=== PATIENT | female | born 1965 | race Two or more races ===

== ENCOUNTER 2017-05-26 12:54 | Inpatient (IN) | payer MEDICAID ==
[~2017-05-26] VITALS: Ht 157.5 cm; Wt 129.5 kg
[2017-05-26 13:46] LABS: Basophils # (auto) 0.2 uL; Eosinophils # (auto) 0 uL; Eosinophils % (auto) 0.1 % (0.0-7.0); Hemoglobin 15.6 g/dL (12.2-16.2); Lymphocytes # (auto) 1.3 uL; Lymphocytes % (auto) 6.2 % (10.0-50.0); Mean Corpuscular Hemoglobin 28.2 pg (28.0-32.0); Mean Corpuscular Hgb Conc. 33.1 g/dL (32.0-36.0); Mean Corpuscular Volume 85.1 fL (80.0-100.0); Monocytes # (auto) 1.2 uL; Monocytes % (auto) 5.8 % (0.0-12.0); Neutrophils # (auto) 18.1 uL; Neutrophils % (auto) 86.9 % (37.0-80.0); Platelet Count (auto) 287 10^3/uL (140-450); Red Blood Cells 5.52 10^6/uL (4.0-5.20); Red Cell Distribution Width 13.5 % (11.8-14.3); White Blood Cell 20.8 10^3/uL (4.4-10.8)
[2017-05-26 14:11] LABS: Albumin 3.1 g/dL (3.4-5.0); BUN/Creatinine Ratio 26.9; Calcium 9.5 mg/dL (8.5-10.1); Potassium 4.1 mmol/L (3.5-5.1)
[2017-05-26 14:14] LABS: Bilirubin, Total 1.6 mg/dL (0.2-1.0); Total Protein 8.3 g/dL (6.4-8.2)
[2017-05-26] MEDS ORDERED: SODIUM CHLORIDE 0.9% 1,000 ML IV ONE ×2 (15:41)
[2017-05-26] MEDS ORDERED: cefTRIAXone 1GM/10ml IVPUSH 10 ML IV ONE (15:45)
[2017-05-26] MEDS ORDERED: InsuLIN REG 1unit/0.01ml Soln (100units/ml) IV ONE (17:30)
[2017-05-26] MEDS ORDERED: CLINDAMYCIN 900MG IV 50 ML IV ONE (17:30)
[2017-05-27] MEDS ORDERED: ACETAMINOPHEN 325 MG TAB PO PRN
[2017-05-27] MEDS ORDERED: HYDROcodone-ACET 5/325MG TAB PO PRN
[2017-05-27] MEDS ORDERED: DEXTROSE (50%) 50ML SYRG IV PRN
[2017-05-27] MEDS ORDERED: SODIUM CHLORIDE 0.9% 1,000 ML IV SCH
[2017-05-27] MEDS ORDERED: TEMAZEPAM 15 MG CAP PO PRN
[2017-05-27] MEDS ORDERED: MORPHINE SULFATE 10 MG/ML INJ 1ML SDV IV PRN ×2
[2017-05-27] MEDS ORDERED: NITROGLYCERIN 0.4 MG SL TAB SL PRN
[2017-05-27] MEDS ORDERED: ONDANSETRON HCL 4 MG/2 ML VIAL IV PRN
[2017-05-27] MEDS ORDERED: SODIUM CHLORIDE 0.9% 500 ML IV ONE
[2017-05-27] MEDS ORDERED: VANCOMYCIN PER PHARMACY 0 MG IV SCH
[2017-05-27] MEDS ORDERED: VANCOMYCIN 1GM/250ML 250 ML IV ONE (00:15)
[2017-05-27] MEDS: ACCU-CHEK COMFORT CURVE STRIP VI SCH ×4 (06:00→17:48)
[2017-05-27] MEDS: InsuLIN REG 1unit/0.01ml Soln (100units/ml) SC SCH ×4 (06:00→17:55)
[2017-05-27 07:18] LABS: Basophils # (auto) 0.1 uL; Basophils % (auto) 0.6 % (0.0-2.0); Eosinophils # (auto) 0.1 uL; Eosinophils % (auto) 0.7 % (0.0-7.0); Hematocrit 43.2 % (36.0-46.0); Hemoglobin 14.1 g/dL (12.2-16.2); Lymphocytes # (auto) 1.7 uL; Lymphocytes % (auto) 11.4 % (10.0-50.0); Mean Corpuscular Hemoglobin 27.8 pg (28.0-32.0); Mean Corpuscular Hgb Conc. 32.7 g/dL (32.0-36.0); Mean Corpuscular Volume 85.1 fL (80.0-100.0); Monocytes # (auto) 1.3 uL; Monocytes % (auto) 8.6 % (0.0-12.0); Neutrophils # (auto) 11.9 uL; Neutrophils % (auto) 78.7 % (37.0-80.0); Platelet Count (auto) 272 10^3/uL (140-450); Red Blood Cells 5.08 10^6/uL (4.0-5.20); Red Cell Distribution Width 13.2 % (11.8-14.3); White Blood Cell 15.1 10^3/uL (4.4-10.8)
[2017-05-27 07:36] LABS: Albumin 2.5 g/dL (3.4-5.0); BUN/Creatinine Ratio 27.3; Bilirubin, Total 1.4 mg/dL (0.2-1.0); Calcium 8.2 mg/dL (8.5-10.1); Potassium 3.8 mmol/L (3.5-5.1)
[2017-05-27] MEDS ORDERED: METF-370 PO (08:59)
[2017-05-27] MEDS ORDERED: LISI40TA PO (08:59)
[2017-05-27] MEDS: cefTRIAXone 1GM/10ml IVPUSH 10 ML IV SCH (12:23)
[2017-05-27] MEDS: FAMOTIDINE 20 MG TAB PO SCH ×2 (12:24→21:16)
[2017-05-27] MEDS: SODIUM CHLORIDE 0.9% 1,000 ML IV SCH (12:24)
[2017-05-27] MEDS: VANCOMYCIN 1GM/250ML 250 ML IV SCH (12:58)
[2017-05-27 13:24] VITALS: BP 122/90
[2017-05-27 17:28] VITALS: BP 136/72
[2017-05-27 21:47] VITALS: BP 145/97
[2017-05-28] MEDS: VANCOMYCIN 1GM/250ML 250 ML IV SCH (00:33)
[2017-05-28] MEDS: SODIUM CHLORIDE 0.9% 1,000 ML IV SCH ×2 (04:40→21:20)
[2017-05-28 05:42] VITALS: BP 148/85
[2017-05-28] MEDS: InsuLIN REG 1unit/0.01ml Soln (100units/ml) SC SCH ×5 (06:00→23:59)
[2017-05-28] MEDS: ACCU-CHEK COMFORT CURVE STRIP VI SCH ×5 (06:10→23:59)
[2017-05-28 06:51] LABS: Basophils # (auto) 0 uL; Basophils % (auto) 0.3 % (0.0-2.0); Eosinophils # (auto) 0.3 uL; Eosinophils % (auto) 1.8 % (0.0-7.0); Hematocrit 41.5 % (36.0-46.0); Hemoglobin 13.6 g/dL (12.2-16.2); Lymphocytes # (auto) 1.7 uL; Mean Corpuscular Hemoglobin 27.9 pg (28.0-32.0); Mean Corpuscular Hgb Conc. 32.8 g/dL (32.0-36.0); Mean Corpuscular Volume 84.9 fL (80.0-100.0); Monocytes % (auto) 7.1 % (0.0-12.0); Neutrophils # (auto) 11.2 uL; Neutrophils % (auto) 78.8 % (37.0-80.0); Nucleated Red Blood Cells % 0.1 %; Platelet Count (auto) 298 10^3/uL (140-450); Red Blood Cells 4.89 10^6/uL (4.0-5.20); Red Cell Distribution Width 13.2 % (11.8-14.3); White Blood Cell 14.2 10^3/uL (4.4-10.8)
[2017-05-28 07:14] LABS: Albumin 2.3 g/dL (3.4-5.0); BUN/Creatinine Ratio 33.3; Calcium 8.8 mg/dL (8.5-10.1); Potassium 3.8 mmol/L (3.5-5.1)
[2017-05-28 07:30] LABS: Bilirubin, Total 0.8 mg/dL (0.2-1.0); Total Protein 6.9 g/dL (6.4-8.2)
[2017-05-28 08:00] VITALS: BP 117/75
[2017-05-28 08:25] VITALS: BP 117/75
[2017-05-28] MEDS: cefTRIAXone 1GM/10ml IVPUSH 10 ML IV SCH (08:52)
[2017-05-28] MEDS: FAMOTIDINE 20 MG TAB PO SCH ×2 (09:23→21:55)
[2017-05-28] MEDS ORDERED: DEXTROSE (50%) 50ML SYRG IV PRN (12:45)
[2017-05-28 13:00] VITALS: BP 141/77
[2017-05-28] MEDS: VANCOMYCIN 1,250 MG in D5W 5% 250 ML IV SCH (13:43)
[2017-05-28 17:21] VITALS: BP 143/95
[2017-05-28] MEDS: INSULIN DETEMIR(LEVEMIR) 1unit/0.01ml Soln (100units/ml) SC SCH (21:56)
[2017-05-28 22:00] VITALS: BP 135/75
[2017-05-29] MEDS: VANCOMYCIN 1,250 MG in D5W 5% 250 ML IV SCH ×2 (02:05→13:26)
[2017-05-29 04:43] VITALS: BP 114/65
[2017-05-29] MEDS: InsuLIN REG 1unit/0.01ml Soln (100units/ml) SC SCH ×3 (06:23→17:33)
[2017-05-29] MEDS: ACCU-CHEK COMFORT CURVE STRIP VI SCH ×3 (06:23→17:22)
[2017-05-29 07:19] LABS: Basophils # (auto) 0 uL; Basophils % (auto) 0.3 % (0.0-2.0); Eosinophils # (auto) 0.4 uL; Eosinophils % (auto) 2.8 % (0.0-7.0); Hematocrit 46.4 % (36.0-46.0); Hemoglobin 15.4 g/dL (12.2-16.2); Lymphocytes # (auto) 2.5 uL; Lymphocytes % (auto) 17.9 % (10.0-50.0); Mean Corpuscular Hemoglobin 27.9 pg (28.0-32.0); Mean Corpuscular Hgb Conc. 33.3 g/dL (32.0-36.0); Mean Corpuscular Volume 83.9 fL (80.0-100.0); Monocytes % (auto) 7.3 % (0.0-12.0); Neutrophils # (auto) 10.1 uL; Neutrophils % (auto) 71.7 % (37.0-80.0); Nucleated Red Blood Cells % 0.2 %; Platelet Count (auto) 265 10^3/uL (140-450); Red Blood Cells 5.52 10^6/uL (4.0-5.20); Red Cell Distribution Width 13.5 % (11.8-14.3)
[2017-05-29 08:00] VITALS: BP 146/90
[2017-05-29 08:56] VITALS: BP 146/90
[2017-05-29] MEDS: cefTRIAXone 1GM/10ml IVPUSH 10 ML IV SCH (09:09)
[2017-05-29] MEDS: FAMOTIDINE 20 MG TAB PO SCH ×2 (09:10→22:30)
[2017-05-29] MEDS: LISINOPRIL 20 MG TAB PO SCH (09:10)
[2017-05-29] MEDS: ENOXAPARIN SOD 40 MG/0.4 ML SYRINGE SC SCH (09:11)
[2017-05-29] MEDS: INSULIN DETEMIR(LEVEMIR) 1unit/0.01ml Soln (100units/ml) SC SCH ×2 (09:12→22:31)
[2017-05-29 13:00] VITALS: BP 129/87
[2017-05-29] MEDS: SODIUM CHLORIDE 0.9% 1,000 ML IV SCH (13:26)
[2017-05-29 22:00] VITALS: BP 159/93
[2017-05-30] VITALS (7 sets, daily range): BP systolic 128–152; BP diastolic 69–96
[2017-05-30] MEDS: InsuLIN REG 1unit/0.01ml Soln (100units/ml) SC SCH ×4 (00:25→17:39)
[2017-05-30] MEDS: ACCU-CHEK COMFORT CURVE STRIP VI SCH ×4 (00:25→17:11)
[2017-05-30] MEDS: VANCOMYCIN 1,250 MG in D5W 5% 250 ML IV SCH ×2 (02:03→15:43)
[2017-05-30] MEDS: SODIUM CHLORIDE 0.9% 1,000 ML IV SCH (07:00)
[2017-05-30 07:26] LABS: Urine Bacteria NONE SEEN /hpf (None Seen); Urine Blood Negative /uL (Negative); Urine Mucus FEW (None Seen); Urine Specific Gravity 1.021 (1.001-1.035); Urine WBC 8 /hpf (0 - 5)
[2017-05-30] MEDS: cefTRIAXone 1GM/10ml IVPUSH 10 ML IV SCH (08:53)
[2017-05-30] MEDS: FAMOTIDINE 20 MG TAB PO SCH ×2 (09:11→22:13)
[2017-05-30] MEDS: LISINOPRIL 20 MG TAB PO SCH (09:11)
[2017-05-30] MEDS: INSULIN DETEMIR(LEVEMIR) 1unit/0.01ml Soln (100units/ml) SC SCH ×2 (09:12→22:13)
[2017-05-30] MEDS: ENOXAPARIN SOD 40 MG/0.4 ML SYRINGE SC SCH (09:12)
[2017-05-30] MEDS: VANCOMYCIN 1GM/250ML 250 ML IV SCH (22:12)
[2017-05-31] MEDS: ACCU-CHEK COMFORT CURVE STRIP VI SCH ×5 (00:07→23:47)
[2017-05-31] MEDS: InsuLIN REG 1unit/0.01ml Soln (100units/ml) SC SCH ×4 (00:18→17:48)
[2017-05-31 05:09] VITALS: BP 134/76
[2017-05-31] MEDS: VANCOMYCIN 1GM/250ML 250 ML IV SCH ×3 (05:59→21:55)
[2017-05-31 08:06] LABS: Basophils # (auto) 0.2 uL; Basophils % (auto) 1.2 % (0.0-2.0); Eosinophils # (auto) 0.4 uL; Eosinophils % (auto) 2.8 % (0.0-7.0); Hematocrit 44.4 % (36.0-46.0); Hemoglobin 14.5 g/dL (12.2-16.2); Lymphocytes # (auto) 2.2 uL; Lymphocytes % (auto) 16.7 % (10.0-50.0); Mean Corpuscular Hemoglobin 27.7 pg (28.0-32.0); Mean Corpuscular Hgb Conc. 32.7 g/dL (32.0-36.0); Mean Corpuscular Volume 84.8 fL (80.0-100.0); Monocytes # (auto) 0.9 uL; Monocytes % (auto) 7.1 % (0.0-12.0); Neutrophils # (auto) 9.7 uL; Neutrophils % (auto) 72.2 % (37.0-80.0); Nucleated Red Blood Cells % 0.1 %; Platelet Count (auto) 370 10^3/uL (140-450); Red Blood Cells 5.24 10^6/uL (4.0-5.20); Red Cell Distribution Width 13.3 % (11.8-14.3); White Blood Cell 13.4 10^3/uL (4.4-10.8)
[2017-05-31 08:15] LABS: INR 1.05 (0.9-1.15); Partial Thromboplastin Time 32.7 sec (22.64-33.71); Prothrombin Time 11.5 sec (9.37-12.3)
[2017-05-31 08:27] LABS: Albumin 2.5 g/dL (3.4-5.0); BUN/Creatinine Ratio 22.2; Bilirubin, Total 0.8 mg/dL (0.2-1.0); Calcium 8.8 mg/dL (8.5-10.1); Total Protein 7.7 g/dL (6.4-8.2)
[2017-05-31 09:31] VITALS: BP 154/86
[2017-05-31] MEDS: cefTRIAXone 1GM/10ml IVPUSH 10 ML IV SCH (10:15)
[2017-05-31] MEDS: FAMOTIDINE 20 MG TAB PO SCH ×2 (10:15→21:55)
[2017-05-31] MEDS: LISINOPRIL 20 MG TAB PO SCH (10:16)
[2017-05-31] MEDS: ENOXAPARIN SOD 40 MG/0.4 ML SYRINGE SC SCH (10:16)
[2017-05-31] MEDS: INSULIN DETEMIR(LEVEMIR) 1unit/0.01ml Soln (100units/ml) SC SCH ×2 (10:16→21:56)
[2017-05-31 12:02] VITALS: BP 163/88
[2017-05-31 17:00] VITALS: BP 91/74
[2017-05-31 21:43] VITALS: BP 125/67
[2017-06-01] MEDS: InsuLIN REG 1unit/0.01ml Soln (100units/ml) SC SCH ×5 (00:04→23:15)
[2017-06-01 05:04] VITALS: BP 121/72
[2017-06-01] MEDS: ACCU-CHEK COMFORT CURVE STRIP VI SCH ×4 (05:48→22:30)
[2017-06-01] MEDS ORDERED: ceFAZolin 1GM VL ONE (06:56)
[2017-06-01] MEDS ORDERED: BUPIVACAINE 0.75% INJ 10ML MPV SDV IJ ONE (06:56)
[2017-06-01] MEDS ORDERED: ceFAZolin 1GM/50ML 50 ML IV ONE (07:08)
[2017-06-01] MEDS ORDERED: fentaNYL CITRATE 100 MCG/2 ML VL ONE (07:39)
[2017-06-01] MEDS ORDERED: MIDAZOLAM HCL 1MG/1ML-2 ML VIAL ONE (07:40)
[2017-06-01] MEDS ORDERED: PROPOFOL 10 MG/ML 20 ML IV ONE (07:41)
[2017-06-01 07:53] LABS: Calcium 9.3 mg/dL (8.5-10.1); Potassium 3.8 mmol/L (3.5-5.1)
[2017-06-01 07:56] LABS: Basophils # (auto) 0.1 uL; Basophils % (auto) 0.7 % (0.0-2.0); Eosinophils # (auto) 0.4 uL; Eosinophils % (auto) 3.2 % (0.0-7.0); Hematocrit 42.9 % (36.0-46.0); Hemoglobin 13.9 g/dL (12.2-16.2); Lymphocytes # (auto) 2.2 uL; Mean Corpuscular Hemoglobin 27.6 pg (28.0-32.0); Mean Corpuscular Hgb Conc. 32.4 g/dL (32.0-36.0); Monocytes # (auto) 0.9 uL; Monocytes % (auto) 6.9 % (0.0-12.0); Neutrophils # (auto) 9.3 uL; Neutrophils % (auto) 72.2 % (37.0-80.0); Nucleated Red Blood Cells % 0.1 %; Platelet Count (auto) 359 10^3/uL (140-450); Red Blood Cells 5.05 10^6/uL (4.0-5.20); Red Cell Distribution Width 13.2 % (11.8-14.3); White Blood Cell 12.8 10^3/uL (4.4-10.8)
[2017-06-01 08:00] VITALS: BP 122/68
[2017-06-01] MEDS ORDERED: HYDROmorphone HCL 2 MG/ML VL IV PRN (08:45)
[2017-06-01] MEDS ORDERED: ONDANSETRON HCL 4 MG/2 ML VIAL IV ONE (08:45)
[2017-06-01] MEDS ORDERED: MORPHINE SULF INJ 2 MG/ML SYRINGE 1ML IV PRN (08:45)
[2017-06-01] MEDS ORDERED: ACCU-CHEK COMFORT CURVE STRIP VI ONE (08:45)
[2017-06-01] MEDS ORDERED: KETOROLAC TROMETH 30 MG/ML 1ML VIAL IV ONE (08:45)
[2017-06-01] MEDS ORDERED: MIDAZOLAM HCL 1MG/1ML-2 ML VIAL IV PRN (08:45)
[2017-06-01] MEDS ORDERED: LABETALOL HCL 5 MG/ML 4ML SYRINGE IV PRN (08:45)
[2017-06-01] MEDS ORDERED: ePHEDrine SULFATE 50 MG/ML AMP IV PRN (08:45)
[2017-06-01] MEDS: cefTRIAXone 1GM/10ml IVPUSH 10 ML IV SCH (09:36)
[2017-06-01] MEDS: LISINOPRIL 20 MG TAB PO SCH (09:53)
[2017-06-01] MEDS: MULTIPLE VITAMINS W/ MINERALS TAB PO SCH (09:54)
[2017-06-01] MEDS: ASCORBIC ACID 500 MG TAB PO SCH (09:54)
[2017-06-01] MEDS: FAMOTIDINE 20 MG TAB PO SCH ×2 (09:54→23:12)
[2017-06-01] MEDS: INSULIN DETEMIR(LEVEMIR) 1unit/0.01ml Soln (100units/ml) SC SCH ×2 (09:57→22:30)
[2017-06-01] MEDS: VANCOMYCIN 1,250 MG in D5W 5% 250 ML IV SCH ×2 (11:05→18:10)
[2017-06-01 13:00] VITALS: BP 124/73
[2017-06-01] MEDS ORDERED: LIDOCAINE 1% HCL (LOCAL ANESTH.) INJ 20ML MDV ID ONE (14:45)
[2017-06-01 17:00] VITALS: BP 147/77
[2017-06-01] MEDS: SODIUM CHLOR 0.9% PF (SALINE LOCK) 10ML VIAL IV SCH (22:00)
[2017-06-01 22:53] VITALS: BP 121/62
[2017-06-02] MEDS: VANCOMYCIN 1,250 MG in D5W 5% 250 ML IV SCH ×2 (02:00→05:30)
[2017-06-02 04:58] VITALS: BP 148/83
[2017-06-02] MEDS: InsuLIN REG 1unit/0.01ml Soln (100units/ml) SC SCH ×2 (06:20→12:10)
[2017-06-02] MEDS: ACCU-CHEK COMFORT CURVE STRIP VI SCH ×2 (06:22→12:10)
[2017-06-02 08:00] VITALS: BP 144/84
[2017-06-02 08:19] LABS: Basophils # (auto) 0 uL; Basophils % (auto) 0.4 % (0.0-2.0); Eosinophils # (auto) 0.3 uL; Eosinophils % (auto) 2.7 % (0.0-7.0); Hematocrit 43.8 % (36.0-46.0); Hemoglobin 14.2 g/dL (12.2-16.2); Lymphocytes # (auto) 1.5 uL; Lymphocytes % (auto) 12.3 % (10.0-50.0); Mean Corpuscular Hemoglobin 27.6 pg (28.0-32.0); Mean Corpuscular Hgb Conc. 32.5 g/dL (32.0-36.0); Mean Corpuscular Volume 84.7 fL (80.0-100.0); Monocytes # (auto) 0.7 uL; Monocytes % (auto) 5.8 % (0.0-12.0); Neutrophils # (auto) 9.6 uL; Neutrophils % (auto) 78.8 % (37.0-80.0); Nucleated Red Blood Cells % 0.1 %; Platelet Count (auto) 363 10^3/uL (140-450); Red Blood Cells 5.17 10^6/uL (4.0-5.20); Red Cell Distribution Width 12.8 % (11.8-14.3); White Blood Cell 12.1 10^3/uL (4.4-10.8)
[2017-06-02 08:36] LABS: BUN/Creatinine Ratio 14.8; Calcium 8.8 mg/dL (8.5-10.1); Potassium 3.9 mmol/L (3.5-5.1)
[2017-06-02] MEDS: cefTRIAXone 1GM/10ml IVPUSH 10 ML IV SCH (10:03)
[2017-06-02] MEDS: LISINOPRIL 20 MG TAB PO SCH (10:04)
[2017-06-02] MEDS: MULTIPLE VITAMINS W/ MINERALS TAB PO SCH (10:05)
[2017-06-02] MEDS: ASCORBIC ACID 500 MG TAB PO SCH (10:05)
[2017-06-02] MEDS: FAMOTIDINE 20 MG TAB PO SCH (10:05)
[2017-06-02] MEDS: SODIUM CHLOR 0.9% PF (SALINE LOCK) 10ML VIAL IV SCH (10:06)
[2017-06-02] MEDS: INSULIN DETEMIR(LEVEMIR) 1unit/0.01ml Soln (100units/ml) SC SCH (10:22)
[2017-06-02] MEDS ORDERED: VANCOMYCIN 1,250 MG in D5W 5% 250 ML IV SCH (14:00)
== END 2017-06-02 14:32 | disposition home or self-care (01) | DRG 710 ==
LOC: ER 12:54 → TELE 12:55 → TELE-CENTR 05-27 07:39 → CENTRAL 05-30 12:43
PROVIDERS: ADMIT Nurse Practitioner; ATTEND Internal Medicine
PROC: 02HV33Z Insertion of Infusion Device into Superior Vena Cava, Percutaneous Approach (ICD-10-PCS; 2017-06-01)
PROC: 0Y6R0Z0 Detachment at Right 2nd Toe, Complete, Open Approach (ICD-10-PCS; principal; 2017-06-01 07:41)
DX: A41.9 Sepsis, unspecified organism (principal); E11.52 Type 2 diabetes mellitus with diabetic peripheral angiopathy with gangrene; E11.69 Type 2 diabetes mellitus with other specified complication; E44.0 Moderate protein-calorie malnutrition; L03.115 Cellulitis of right lower limb; Z68.43 Body mass index [BMI] 50.0-59.9, adult; E66.01 Morbid (severe) obesity due to excess calories; M86.8X7 Other osteomyelitis, ankle and foot; I10 Essential (primary) hypertension; J45.909 Unspecified asthma, uncomplicated; Z82.5 Family history of asthma and other chronic lower respiratory diseases
CPT/HCPCS: 36415; 36569; 71045; 71046; 73630; 73700; 78315; 80048; 80053; 80202; 81001; 82962; 83036; 83605; 85025; 85610; 85730; 87040; 87070; 87075; 87205; 93005; 93926; 96361; 96365; 96366; 96375; J0690; J1815; J2250; J2704; J3490; J7060

== ENCOUNTER 2019-05-20 23:07 | Emergency (ER) | payer MEDICAID ==
[~2019-05-20] VITALS: Ht 157.5 cm; Wt 140.2 kg
[~2019-05-20 23:07] MED LIST: LISI40TA PO; METF-370 PO
[2019-05-20 23:24] VITALS: BP 141/67
== END 2019-05-21 02:11 | disposition home or self-care (01) ==
LOC: ER 23:11
DX: S80.11XA Contusion of right lower leg, initial encounter (principal); L03.115 Cellulitis of right lower limb; E11.9 Type 2 diabetes mellitus without complications; I10 Essential (primary) hypertension; M79.661 Pain in right lower leg; W22.8XXA Striking against or struck by other objects, initial encounter; Y93.89 Activity, other specified; Y92.89 Other specified places as the place of occurrence of the external cause; Y99.8 Other external cause status
CPT/HCPCS: 73610; 73630; 93971

== ENCOUNTER 2022-02-23 10:39 | Inpatient (IN) | payer MEDICAID ==
[~2022-02-23] VITALS: Ht 157.5 cm; Wt 121.8 kg
[~2022-02-23 10:39] MED LIST changes: -LISI40TA PO; +LISI40TA11 PO
[2022-02-23] MEDS ORDERED: SODIUM CHLORIDE 0.9% 500 ML IV ONE (11:15)
[2022-02-23 12:02] LABS: INR 1.01 (0.9-1.15); Partial Thromboplastin Time 34.9 sec (24.6-33.4)
[2022-02-23 12:05] LABS: Basophils # (auto) 0.1 10 ^3/uL (0-0.2); Basophils % (auto) 0.9 % (0.0-2.0); Eosinophils # (auto) 0.2 10 ^3/uL (0-0.8); Eosinophils % (auto) 1.7 % (0.0-7.0); Hematocrit 44.8 % (36.0-46.0); Hemoglobin 14.6 g/dL (12.2-16.2); Lymphocytes # (auto) 1.9 10 ^3/uL (0.4-5.4); Lymphocytes % (auto) 14.4 % (10.0-50.0); Mean Corpuscular Hemoglobin 27.2 pg (28.0-32.0); Mean Corpuscular Hgb Conc. 32.5 g/dL (32.0-36.0); Mean Corpuscular Volume 83.7 fL (80.0-100.0); Monocytes # (auto) 0.9 10 ^3/uL (0-1.3); Monocytes % (auto) 6.4 % (0.0-12.0); Neutrophils # (auto) 10.3 10 ^3/uL (1.6-8.6); Neutrophils % (auto) 76.6 % (37.0-80.0); Nucleated Red Blood Cells % 0.1 %; Red Blood Cells 5.36 10^6/uL (4.0-5.20); Red Cell Distribution Width 13.9 % (11.8-14.3); White Blood Cell 13.4 10^3/uL (4.4-10.8)
[2022-02-23 12:17] LABS: Alanine Aminotransferase 17 U/L (13-56); Alkaline Phosphatase 116 U/L (45-117); Anion Gap 9 (5-15); Aspartate Aminotransferase 13 U/L (15-37); BUN/Creatinine Ratio 21.3; Bilirubin, Total 1.2 mg/dL (0.2-1.0); Blood Urea Nitrogen 16 mg/dL (7-18); Carbon Dioxide 23 mmol/L (21-32); Chloride 106 mmol/L (98-107); GFR African American 102 mL/min; GFR Non-African American 85 mL/min; Glucose 254 mg/dL (74-106); Potassium 4.7 mmol/L (3.5-5.1); Sodium 138 mmol/L (136-145); Total Protein 7.3 g/dL (6.4-8.2)
[2022-02-23] MEDS ORDERED: CLINDAMYCIN 600MG IV 50 ML IV ONE (13:00)
[2022-02-23] MEDS ORDERED: DEXTROSE (50%) 50ML SYRG IV PRN (16:15)
[2022-02-23] MEDS ORDERED: ONDANSETRON HCL 4 MG/2 ML VIAL IV PRN (16:15)
[2022-02-23] MEDS ORDERED: PANTOPRAZOLE 40 MG/10 ML VIAL INJ IV ONE (16:15)
[2022-02-23] MEDS: SODIUM CHLORIDE 0.9% 1,000 ML IV SCH (16:42)
[2022-02-23 16:57] LABS: Cholesterol 105 mg/dL (< 200); HDL Cholesterol 53 mg/dL (40-59); LDL Cholesterol 53 mg/dL (< 100); Triglycerides 88 mg/dL (< 150)
[2022-02-23] MEDS: ACCU-CHEK COMFORT CURVE STRIP VI SCH ×2 (17:16→22:00)
[2022-02-23] MEDS: InsuLIN REG 1unit/0.01ml Soln (100units/ml) SC SCH ×2 (17:19→22:35)
[2022-02-23] MEDS ORDERED: DULO1CAP6 PO (23:14)
[2022-02-23] MEDS ORDERED: ATOR20TA50 PO (23:14)
[2022-02-23] MEDS ORDERED: ERTU5TAB PO (23:14)
[2022-02-23] MEDS: CLINDAMYCIN 600MG IV 50 ML IV SCH (23:21)
[2022-02-23] MEDS: ASCORBIC ACID 500 MG TAB PO SCH (23:22)
[2022-02-24] MEDS: SODIUM CHLORIDE 0.9% 1,000 ML IV SCH ×3 (02:15→22:29)
[2022-02-24 05:00] VITALS: BP 122/55
[2022-02-24] MEDS: ACCU-CHEK COMFORT CURVE STRIP VI SCH ×4 (05:24→22:12)
[2022-02-24] MEDS: CLINDAMYCIN 600MG IV 50 ML IV SCH ×3 (05:25→22:20)
[2022-02-24 06:02] LABS: Urine Bacteria FEW /hpf (None Seen); Urine Blood Negative /uL (Negative); Urine Budding Yeast OCCASIONAL /hpf (None Seen); Urine Specific Gravity 1.025 (1.001-1.035); Urine WBC 14 /hpf (0 - 5)
[2022-02-24 06:23] LABS: Basophils # (auto) 0 10 ^3/uL (0-0.2); Basophils % (auto) 0.4 % (0.0-2.0); Eosinophils # (auto) 0.3 10 ^3/uL (0-0.8); Eosinophils % (auto) 2.7 % (0.0-7.0); Hematocrit 42.4 % (36.0-46.0); Hemoglobin 13.7 g/dL (12.2-16.2); Lymphocytes % (auto) 15.9 % (10.0-50.0); Mean Corpuscular Hemoglobin 27.6 pg (28.0-32.0); Mean Corpuscular Hgb Conc. 32.3 g/dL (32.0-36.0); Mean Corpuscular Volume 85.3 fL (80.0-100.0); Monocytes # (auto) 0.9 10 ^3/uL (0-1.3); Neutrophils # (auto) 9.5 10 ^3/uL (1.6-8.6); Red Blood Cells 4.97 10^6/uL (4.0-5.20); Red Cell Distribution Width 14.1 % (11.8-14.3); White Blood Cell 12.8 10^3/uL (4.4-10.8)
[2022-02-24] MEDS: InsuLIN REG 1unit/0.01ml Soln (100units/ml) SC SCH ×4 (06:24→22:20)
[2022-02-24 06:42] LABS: Albumin 2.7 g/dL (3.4-5.0); Calcium 8.5 mg/dL (8.5-10.1); Potassium 4.8 mmol/L (3.5-5.1)
[2022-02-24 06:45] LABS: BUN/Creatinine Ratio 20.9; Bilirubin, Total 1.2 mg/dL (0.2-1.0); Total Protein 6.6 g/dL (6.4-8.2)
[2022-02-24 08:17] VITALS: BP 122/74
[2022-02-24] MEDS ORDERED: PANTOPRAZOLE 40 MG/10 ML VIAL INJ IV SCH (10:00)
[2022-02-24] MEDS: MULTIPLE VITAMIN TAB PO SCH (11:22)
[2022-02-24] MEDS: ZINC SULFATE 220mg CAP or TAB PO SCH (11:23)
[2022-02-24] MEDS: ASCORBIC ACID 500 MG TAB PO SCH ×2 (11:23→22:20)
[2022-02-24] MEDS: LISINOPRIL 20 MG TAB PO SCH (11:23)
[2022-02-24] MEDS: ENOXAPARIN SOD 40 MG/0.4 ML SYRINGE SC SCH (11:24)
[2022-02-24 13:50] VITALS: BP 120/77
[2022-02-24 22:00] VITALS: BP 104/62
[2022-02-25 05:00] VITALS: BP 101/51
[2022-02-25] MEDS: ACCU-CHEK COMFORT CURVE STRIP VI SCH ×4 (06:22→22:16)
[2022-02-25] MEDS: InsuLIN REG 1unit/0.01ml Soln (100units/ml) SC SCH ×4 (06:28→22:19)
[2022-02-25] MEDS: CLINDAMYCIN 600MG IV 50 ML IV SCH ×3 (06:32→22:20)
[2022-02-25 09:00] VITALS: BP 111/70
[2022-02-25] MEDS: ENOXAPARIN SOD 40 MG/0.4 ML SYRINGE SC SCH (10:39)
[2022-02-25] MEDS: ASCORBIC ACID 500 MG TAB PO SCH ×2 (10:39→22:20)
[2022-02-25] MEDS: ZINC SULFATE 220mg CAP or TAB PO SCH (10:39)
[2022-02-25] MEDS: MULTIPLE VITAMIN TAB PO SCH (10:40)
[2022-02-25] MEDS: LISINOPRIL 20 MG TAB PO SCH (10:40)
[2022-02-25] MEDS: SODIUM CHLORIDE 0.9% 1,000 ML IV SCH ×2 (10:41→18:15)
[2022-02-25 12:49] VITALS: BP 109/67
[2022-02-25 17:00] VITALS: BP 109/49
[2022-02-25 22:00] VITALS: BP 98/58
[2022-02-26] MEDS: SODIUM CHLORIDE 0.9% 1,000 ML IV SCH ×2 (01:11→09:44)
[2022-02-26 05:00] VITALS: BP 103/67
[2022-02-26] MEDS: ACCU-CHEK COMFORT CURVE STRIP VI SCH ×2 (06:21→12:00)
[2022-02-26] MEDS: InsuLIN REG 1unit/0.01ml Soln (100units/ml) SC SCH ×2 (06:23→13:29)
[2022-02-26] MEDS: CLINDAMYCIN 600MG IV 50 ML IV SCH ×2 (06:24→13:42)
[2022-02-26 08:54] VITALS: BP 107/58
[2022-02-26] MEDS: MULTIPLE VITAMIN TAB PO SCH (09:36)
[2022-02-26] MEDS: ENOXAPARIN SOD 40 MG/0.4 ML SYRINGE SC SCH (09:37)
[2022-02-26] MEDS: ZINC SULFATE 220mg CAP or TAB PO SCH (09:37)
[2022-02-26] MEDS: ASCORBIC ACID 500 MG TAB PO SCH (09:37)
[2022-02-26] MEDS: LISINOPRIL 20 MG TAB PO SCH (09:38)
[2022-02-26] MEDS ORDERED: CLIN300C8 PO (10:39)
[2022-02-26 11:46] VITALS: BP 107/74
[2022-02-26 13:00] VITALS: BP 126/65
== END 2022-02-26 16:35 | disposition home health service (06) | DRG 720 ==
LOC: ER 10:39 → OVERFLOW 16:08 → WEST WING 22:45
PROVIDERS: ADMIT Nurse Practitioner Family; ATTEND Internal Medicine
DX: A41.9 Sepsis, unspecified organism (principal); E46 Unspecified protein-calorie malnutrition; E11.69 Type 2 diabetes mellitus with other specified complication; L03.115 Cellulitis of right lower limb; M86.8X7 Other osteomyelitis, ankle and foot; E78.5 Hyperlipidemia, unspecified; E11.65 Type 2 diabetes mellitus with hyperglycemia; M79.89 Other specified soft tissue disorders; Z20.822 Contact with and (suspected) exposure to COVID-19; I10 Essential (primary) hypertension; E66.01 Morbid (severe) obesity due to excess calories; Z81.8 Family history of other mental and behavioral disorders; Z82.5 Family history of asthma and other chronic lower respiratory diseases; Z89.421 Acquired absence of other right toe(s)
CPT/HCPCS: 36415; 73700; 80053; 80061; 81001; 82962; 83036; 84443; 85025; 85610; 85652; 85730; 87040; 87077; 87186; 87205; 87426; 93005; 93971; 96365; 96375; C9113; G0378; J1815; J3490

== ENCOUNTER 2022-04-10 15:24 | Inpatient (IN) | payer MEDICAID ==
[~2022-04-10] VITALS: Ht 157.5 cm; Wt 123.6 kg
[~2022-04-10 15:24] MED LIST changes: +ATOR20TA50 PO; +CLIN300C8 PO; +DULO1CAP6 PO; +ERTU5TAB PO
[2022-04-11 02:05] LABS: Basophils # (auto) 0.1 10 ^3/uL (0-0.2); Basophils % (auto) 0.4 % (0.0-2.0); Eosinophils # (auto) 0.2 10 ^3/uL (0-0.8); Eosinophils % (auto) 1.4 % (0.0-7.0); Hematocrit 46.4 % (36.0-46.0); Hemoglobin 15.1 g/dL (12.2-16.2); Lymphocytes # (auto) 2.3 10 ^3/uL (0.4-5.4); Mean Corpuscular Hemoglobin 27.3 pg (28.0-32.0); Mean Corpuscular Hgb Conc. 32.5 g/dL (32.0-36.0); Mean Corpuscular Volume 84.2 fL (80.0-100.0); Monocytes # (auto) 0.9 10 ^3/uL (0-1.3); Monocytes % (auto) 6.8 % (0.0-12.0); Neutrophils % (auto) 74.4 % (37.0-80.0); Nucleated Red Blood Cells % 0.1 %; Red Blood Cells 5.51 10^6/uL (4.0-5.20); White Blood Cell 13.5 10^3/uL (4.4-10.8)
[2022-04-11 02:26] LABS: Albumin 3.3 g/dL (3.4-5.0); Calcium 9.4 mg/dL (8.5-10.1); Potassium 4.4 mmol/L (3.5-5.1)
[2022-04-11 02:28] LABS: BUN/Creatinine Ratio 23.5
[2022-04-11 02:41] LABS: Bilirubin, Total 1.2 mg/dL (0.2-1.0); Total Protein 7.1 g/dL (6.4-8.2)
[2022-04-11] MEDS ORDERED: HYDROcodone-ACET 5/325MG TAB PO PRN (04:15)
[2022-04-11] MEDS ORDERED: cefTRIAXone 1GM/50ML D5W 50 ML IV ONE (04:15)
[2022-04-11] MEDS ORDERED: NITROGLYCERIN 0.4 MG SL TAB SL PRN (04:15)
[2022-04-11] MEDS ORDERED: ONDANSETRON HCL 4 MG/2 ML VIAL IV PRN (04:15)
[2022-04-11] MEDS ORDERED: DOCUSATE SOD 100 MG CAP PO PRN (04:15)
[2022-04-11] MEDS ORDERED: DEXTROSE (50%) 50ML SYRG IV PRN (04:15)
[2022-04-11] MEDS ORDERED: MORPHINE SULFATE INJ 2 MG/ml SYRG IV PRN ×2 (04:15)
[2022-04-11] MEDS ORDERED: ACETAMINOPHEN 325 MG TAB PO PRN (04:15)
[2022-04-11] MEDS ORDERED: VANCOMYCIN PER PHARMACY 0 MG IV SCH (04:15)
[2022-04-11] MEDS ORDERED: VANCOMYCIN 1GM/250ML 250 ML IV ONE (04:30)
[2022-04-11 05:22] LABS: Basophils # (auto) 0.1 10 ^3/uL (0-0.2); Eosinophils # (auto) 0.2 10 ^3/uL (0-0.8); Eosinophils % (auto) 1.6 % (0.0-7.0); Hematocrit 47.6 % (36.0-46.0); Hemoglobin 15.4 g/dL (12.2-16.2); Lymphocytes # (auto) 2.2 10 ^3/uL (0.4-5.4); Lymphocytes % (auto) 16.4 % (10.0-50.0); Mean Corpuscular Hemoglobin 27.5 pg (28.0-32.0); Mean Corpuscular Hgb Conc. 32.4 g/dL (32.0-36.0); Mean Corpuscular Volume 84.8 fL (80.0-100.0); Monocytes # (auto) 0.9 10 ^3/uL (0-1.3); Monocytes % (auto) 6.4 % (0.0-12.0); Neutrophils % (auto) 74.6 % (37.0-80.0); Nucleated Red Blood Cells % 0.1 %; Red Blood Cells 5.62 10^6/uL (4.0-5.20); White Blood Cell 13.4 10^3/uL (4.4-10.8)
[2022-04-11 05:43] LABS: Albumin 3.4 g/dL (3.4-5.0); BUN/Creatinine Ratio 26.7; Calcium 9.4 mg/dL (8.5-10.1); Potassium 4.4 mmol/L (3.5-5.1)
[2022-04-11 05:46] LABS: Bilirubin, Total 1.4 mg/dL (0.2-1.0); Total Protein 7.2 g/dL (6.4-8.2)
[2022-04-11] MEDS: InsuLIN REG 1unit/0.01ml Soln (100units/ml) SC SCH ×3 (09:15→18:00)
[2022-04-11] MEDS: SODIUM CHLOR 0.9% PF (SALINE LOCK) 10ML VIAL/SYR IV SCH ×3 (09:15→22:12)
[2022-04-11] MEDS: ACCU-CHEK COMFORT CURVE STRIP VI SCH ×3 (09:17→18:12)
[2022-04-11] MEDS: cefTRIAXone 1GM/50ML D5W 50 ML IV SCH (17:34)
[2022-04-11] MEDS: ENOXAPARIN SOD 40 MG/0.4 ML SYRINGE SC SCH (17:34)
[2022-04-11] MEDS: VANCOMYCIN 1GM/250ML 250 ML IV SCH (18:00)
[2022-04-12] MEDS: ACCU-CHEK COMFORT CURVE STRIP VI SCH ×5 (00:24→23:48)
[2022-04-12] MEDS: InsuLIN REG 1unit/0.01ml Soln (100units/ml) SC SCH ×5 (00:47→23:48)
[2022-04-12] MEDS: VANCOMYCIN 1GM/250ML 250 ML IV SCH ×4 (02:38→23:45)
[2022-04-12 04:17] LABS: Basophils # (auto) 0.1 10 ^3/uL (0-0.2); Basophils % (auto) 0.8 % (0.0-2.0); Eosinophils # (auto) 0.4 10 ^3/uL (0-0.8); Eosinophils % (auto) 3.4 % (0.0-7.0); Hematocrit 45.3 % (36.0-46.0); Hemoglobin 14.9 g/dL (12.2-16.2); Lymphocytes # (auto) 2.3 10 ^3/uL (0.4-5.4); Lymphocytes % (auto) 18.1 % (10.0-50.0); Mean Corpuscular Hemoglobin 27.7 pg (28.0-32.0); Monocytes % (auto) 7.6 % (0.0-12.0); Neutrophils # (auto) 8.9 10 ^3/uL (1.6-8.6); Neutrophils % (auto) 70.1 % (37.0-80.0); Nucleated Red Blood Cells % 0.1 %; Red Cell Distribution Width 14.9 % (11.8-14.3); White Blood Cell 12.8 10^3/uL (4.4-10.8)
[2022-04-12 04:37] LABS: Albumin 3.2 g/dL (3.4-5.0); Calcium 9.3 mg/dL (8.5-10.1); Potassium 4.1 mmol/L (3.5-5.1)
[2022-04-12 04:42] LABS: BUN/Creatinine Ratio 35.8; Bilirubin, Total 1.4 mg/dL (0.2-1.0); Total Protein 6.7 g/dL (6.4-8.2)
[2022-04-12] MEDS: SODIUM CHLOR 0.9% PF (SALINE LOCK) 10ML VIAL/SYR IV SCH ×3 (06:22→21:06)
[2022-04-12] MEDS: ENOXAPARIN SOD 40 MG/0.4 ML SYRINGE SC SCH (10:44)
[2022-04-12] MEDS: cefTRIAXone 1GM/50ML D5W 50 ML IV SCH (10:44)
[2022-04-12 12:00] VITALS: BP 115/64
[2022-04-12 12:31] LABS: Hepatitis B Surface Antibody Negative (Negative)
[2022-04-12 14:19] LABS: Hepatitis C Antibody Negative (Negative)
[2022-04-12 16:00] VITALS: BP 117/66
[2022-04-12 22:00] VITALS: BP 134/74
[2022-04-13 05:00] VITALS: BP 130/57
[2022-04-13] MEDS: ACCU-CHEK COMFORT CURVE STRIP VI SCH ×2 (05:13→12:23)
[2022-04-13] MEDS: SODIUM CHLOR 0.9% PF (SALINE LOCK) 10ML VIAL/SYR IV SCH ×2 (05:13→14:00)
[2022-04-13] MEDS: InsuLIN REG 1unit/0.01ml Soln (100units/ml) SC SCH ×2 (05:18→12:23)
[2022-04-13] MEDS: VANCOMYCIN 1GM/250ML 250 ML IV SCH ×2 (05:39→12:23)
[2022-04-13 07:06] LABS: Albumin 3.1 g/dL (3.4-5.0); BUN/Creatinine Ratio 33.3; Calcium 8.8 mg/dL (8.5-10.1); Potassium 4.2 mmol/L (3.5-5.1)
[2022-04-13 08:00] VITALS: BP 104/69
[2022-04-13] MEDS: cefTRIAXone 1GM/50ML D5W 50 ML IV SCH (09:43)
[2022-04-13] MEDS: ENOXAPARIN SOD 40 MG/0.4 ML SYRINGE SC SCH (09:43)
[2022-04-13] MEDS ORDERED: INFLUENZA QUAD 2022-2023 0.5 ML SYRG IM ONE (11:30)
[2022-04-13 12:00] VITALS: BP 130/70
[2022-04-13 14:51] LABS: INR 1.04 (0.9-1.15)
[2022-04-13 16:00] VITALS: BP 150/66
[2022-04-13] MEDS ORDERED: LIDOCAINE 1% (LOCAL ANESTH.) PF 5ml SDV ID ONE (16:30)
[2022-04-13] MEDS ORDERED: SODIUM CHLOR 0.9% PF (SALINE LOCK) 10ML VIAL/SYR IV SCH (22:00)
[2022-04-14] MEDS ORDERED: VANCOMYCIN 1GM/250ML 250 ML IV SCH (02:00)
== END 2022-04-13 18:20 | disposition home or self-care (01) | DRG 206 ==
LOC: ER 15:27 → OVERFLOW 04-11 04:13 → CENTRAL 04-12 08:38
PROVIDERS: ADMIT Nurse Practitioner Family; ATTEND Student in an Organized Health Care Education/Training Program
PROC: 02HV33Z Insertion of Infusion Device into Superior Vena Cava, Percutaneous Approach (ICD-10-PCS; principal; 2022-04-13)
PROC: B548ZZA Ultrasonography of Superior Vena Cava, Guidance (ICD-10-PCS; 2022-04-13)
DX: T82.514A Breakdown (mechanical) of infusion catheter, initial encounter (principal); E11.69 Type 2 diabetes mellitus with other specified complication; L03.115 Cellulitis of right lower limb; Z20.822 Contact with and (suspected) exposure to COVID-19; Y71.2 Prosthetic and other implants, materials and accessory cardiovascular devices associated with adverse incidents; E86.0 Dehydration; E11.65 Type 2 diabetes mellitus with hyperglycemia; I10 Essential (primary) hypertension; M86.8X7 Other osteomyelitis, ankle and foot; E78.5 Hyperlipidemia, unspecified
CPT/HCPCS: 36415; 36569; 71045; 80053; 80069; 80202; 82962; 84484; 85025; 85610; 85730; 86706; 86803; 87426; 96365; 96367; 96372; G0378; J0696; J1815

== ENCOUNTER 2022-05-14 16:00 | Emergency (ER) | payer MEDICAID ==
[~2022-05-14] VITALS: Ht 157.5 cm; Wt 121.8 kg
[2022-05-14 16:12] VITALS: BP 155/77
[2022-05-14 17:17] LABS: INR 0.99 (0.9-1.15); Partial Thromboplastin Time 31.6 sec (24.6-33.4)
[2022-05-14 18:41] LABS: Basophils # (auto) 0.1 10 ^3/uL (0-0.2); Basophils % (auto) 0.8 % (0.0-2.0); Eosinophils # (auto) 0.5 10 ^3/uL (0-0.8); Hematocrit 45.3 % (36.0-46.0); Lymphocytes # (auto) 2.1 10 ^3/uL (0.4-5.4); Mean Corpuscular Hemoglobin 28.2 pg (28.0-32.0); Mean Corpuscular Hgb Conc. 33.1 g/dL (32.0-36.0); Mean Corpuscular Volume 85.2 fL (80.0-100.0); Monocytes # (auto) 0.7 10 ^3/uL (0-1.3); Monocytes % (auto) 5.7 % (0.0-12.0); Neutrophils # (auto) 8.2 10 ^3/uL (1.6-8.6); Neutrophils % (auto) 71.5 % (37.0-80.0); Red Blood Cells 5.32 10^6/uL (4.0-5.20); Red Cell Distribution Width 14.5 % (11.8-14.3); White Blood Cell 11.5 10^3/uL (4.4-10.8)
[2022-05-14 18:46] LABS: Albumin 3.3 g/dL (3.4-5.0); Calcium 9.5 mg/dL (8.5-10.1); Potassium 4.3 mmol/L (3.5-5.1)
[2022-05-14 18:49] LABS: Bilirubin, Total 0.6 mg/dL (0.2-1.0); Total Protein 7.5 g/dL (6.4-8.2)
[2022-05-14] MEDS ORDERED: LIDOCAINE 1% (LOCAL ANESTH.) PF 5ml SDV ID ONE (19:45)
[2022-05-14] MEDS ORDERED: SODIUM CHLOR 0.9% PF (SALINE LOCK) 10ML VIAL/SYR IV SCH (22:00)
== END 2022-05-14 20:25 | disposition left against medical advice (07) ==
LOC: ER 16:00
DX: Z45.2 Encounter for adjustment and management of vascular access device (principal); I10 Essential (primary) hypertension; E11.9 Type 2 diabetes mellitus without complications; E78.5 Hyperlipidemia, unspecified; Z79.2 Long term (current) use of antibiotics; Z79.899 Other long term (current) drug therapy
CPT/HCPCS: 36415; 36569; 71045; 80053; 85025; 85610; 85730; 99284; C1751; J7050

== ENCOUNTER 2022-05-15 15:07 | Emergency (ER) | payer MEDICAID ==
[~2022-05-15] VITALS: Ht 157.5 cm; Wt 121.5 kg
[2022-05-15] MEDS ORDERED: cefTRIAXone 1GM/50ML D5W 50 ML IV ONE (16:00)
[2022-05-15] MEDS ORDERED: VANCOMYCIN PER PHARMACY 0 MG IV ONE (16:30)
[2022-05-15] MEDS ORDERED: VANCOMYCIN 1GM/250ML 250 ML IV ONE (17:00)
[2022-05-15 18:04] LABS: Albumin 3.5 g/dL (3.4-5.0); BUN/Creatinine Ratio 32.3; Calcium 9.4 mg/dL (8.5-10.1); Potassium 4.6 mmol/L (3.5-5.1)
[2022-05-15 18:16] LABS: Bilirubin, Total 0.8 mg/dL (0.2-1.0); Total Protein 7.3 g/dL (6.4-8.2)
[2022-05-15 19:08] LABS: Basophils # (auto) 0.1 10 ^3/uL (0-0.2); Basophils % (auto) 0.7 % (0.0-2.0); Eosinophils # (auto) 0.4 10 ^3/uL (0-0.8); Eosinophils % (auto) 2.7 % (0.0-7.0); Hemoglobin 16.8 g/dL (12.2-16.2); Lymphocytes # (auto) 2.4 10 ^3/uL (0.4-5.4); Lymphocytes % (auto) 16.9 % (10.0-50.0); Mean Corpuscular Hemoglobin 29.1 pg (28.0-32.0); Mean Corpuscular Hgb Conc. 34.2 g/dL (32.0-36.0); Monocytes # (auto) 0.7 10 ^3/uL (0-1.3); Monocytes % (auto) 4.7 % (0.0-12.0); Neutrophils # (auto) 10.7 10 ^3/uL (1.6-8.6); Nucleated Red Blood Cells % 0.4 %; Red Blood Cells 5.76 10^6/uL (4.0-5.20); Red Cell Distribution Width 14.4 % (11.8-14.3); White Blood Cell 14.3 10^3/uL (4.4-10.8)
[2022-05-16 00:39] VITALS: BP 110/64
== END 2022-05-16 00:45 | disposition home or self-care (01) ==
LOC: ER 15:07
DX: M86.8X7 Other osteomyelitis, ankle and foot (principal); Z79.2 Long term (current) use of antibiotics
CPT/HCPCS: 36415; 80053; 80202; 85025; 96365; 96366; 96367; 99284; J0696; J3370

== ENCOUNTER 2024-05-30 09:57 | Inpatient (IN) | payer MEDICAID ==
[~2024-05-30] VITALS: Ht 157.5 cm; Wt 115.2 kg
[~2024-05-30 09:57] MED LIST changes: +CLIN1CAP70 PO; -CLIN300C8 PO; -LISI40TA11 PO; +LISI40TA16 PO
--- NOTE | 2024-05-30 10:15 | ED.PDOC ---
Musculoskeletal HPI Comments 58 year old female presents to the ED with chief complaint of toe infection. Patient reports that she had noticed this morning bleeding coming from an open wound on her left 2nd toe with associated redness and swelling. Patient relays that she had a similar infection occur to her right 2nd toe in which it needed to be amputated. Patient states the infection happened overnight as yesterday her left 2nd toe appeared normal. Patient denies any numbness, weakness, discharge, or foot pain. Chief Complaint: Lower Extremity Time Seen by MD: 10:13 Primary Care Provider: delmar Bolden Notes: Nurses Notes, Medications, Allergies Allergies: Coded Allergies: NO KNOWN ALLERGIES (Unverified , 08/06/13) Home Meds Active Scripts Clindamycin Hcl (Clindamycin Hcl) 300 Mg Cap, 1 CAP PO TID, #30 CAP Prov:RENAN SKINNER MD 02/26/22 Reported Medications Ertugliflozin l-Pyroglutamic A (Steglatro) 5 Mg Tab, 1 TAB PO DAILY 02/23/22 Atorvastatin Calcium (ATORVASTATIN CALCIUM) 20 Mg Tab, 1 TAB PO DAILY 02/23/22 Duloxetine HCl (Duloxetine HCl) 60 Mg Cap, 1 CAP PO DAILY 02/23/22 Lisinopril (Lisinopril) 40 Mg Tab, 40 MG PO DAILY for 30 Days, MG 05/27/17 Metformin Hydrochloride (Metformin Hcl) 500 Mg Tab, 1 TAB PO DAILY, #60 TAB 3 Refills 05/27/17 Information Source: Patient Mode of Arrival: Wheelchair Location: Left Extremity Location: Toe 2 Timing: Hours Prehospital treatment: None Severity: Moderate Able to Move Extremity: Yes Bear Weight: Fully Pain: Moderate Mechanism: Spontaneous Circumstances: Preceding Wound Onset of Symptoms: Spontaneous Symptoms: Swelling, Pain, Erythema, Warmth DVT Risk Factors: NONE Last Tetanus: Unknown Associated signs and symptoms: Swelling Past Medical History PAST MEDICAL HISTORY: DM, High Lipids, HTN Surgical History (Other): Rt 2nd toe amputation. 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 History Family History Family History: Reviewed,noncontributory to illness Family History (Other): Mom had dementia Social History Smoker: Non-Smoker Alcohol: Denies ETOH Use Drugs: Denies Drug Use Lives In: Home Constitutional: denies: chills, diaphoresis, fatigue, fever, malaise, sweats, weakness, others EENTM: denies: blurred vision, double vision, ear bleeding, ear discharge, ear drainage, ear pain, ear ringing, eye pain, eye redness, hearing loss, mouth pain, mouth swelling, nasal discharge, nose bleeding, nose congestion, nose pain, photophobia, tearing, throat pain, throat swelling, voice changes, others Respiratory: denies: cough, hemoptysis, orthopnea, SOB at rest, shortness of breath, SOB with excertion, stridor, wheezing, others Cardiovascular: denies: chest pain, dizzy spells, diaphoresis, Dyspnea on exertion, edema, irregular heart beat, left arm pain, lightheadedness, palpita tions, PND, syncope, others Gastrointestinal: denies: abdomen distended, abdominal pain, blood streaked heather wels, constipated, diarrhea, dysphagia, difficulty swallowing, hematemesis, melena, nausea, poor appetite, poor fluid intake, rectal bleeding, rectal pain, vomiting, others Genitourinary: denies: abnormal vagina bleeding, burning, dyspareunia, dysuria, flank pain, frequency, hematuria, incontinence, pain, , vagina discharge, urgency, others Neurological: denies: dizziness, fainting, headache, left sided numbness, left sided weakness, numbness, paresthesia, pre-existing deficit, right sided numbness, right sided weakness, seizure, speech problems, tingling, tremors, weakness, others Musculoskeletal: denies: back pain, gout, joint pain, joint swelling, muscle pain, muscle stiffness, neck pain, others Integumetry: reports: wounds (Left 2nd toe wound with swelling and redness); denies: bruises, change in color, change in hair/nails, dryness, laceration, lesions, lumps, rash, others Allergic/Immunocompromised: denies: Difficulty Healing, Frequent Infections, Hives, Itching, others Hematologic/Lymphatic: denies: anemia, blood clots, easy bleeding, easy bruising, swollen glands, others Endocrine: denies: excessive hunger, excessive sweating, excessive thirst, excessive urination, flushing, intolerance to cold, intolerance to heat, unexplained weight gain, unexplained weight loss, others Psychiatric: denies: anxiety, bipolar disorder, depression, hopeless, panic disorder, schizophrenia, sleepless, suicidal, others All Other Systems: Reviewed and Negative Physical Exam General Appearance: Moderate Distress, Normal HEENT: Normal ENT Inspection, PERRL/EOMI Neck: Full Range of Motion, Non-Tender, Normal, Normal Inspection Respiratory: Chest Non-Tender, Lungs Clear, No Accessory Muscle Use, No Respiratory Distress, Normal Breath Sounds Cardiovascular: No Edema, No JVD, No Murmur, No Gallop, Normal Peripheral Pulses, Regular Rate/Rhythm Breast Exam: Deferred Gastrointestinal: No Organomegaly, Non Tender, No Pulsatile Mass, Normal Bowel Sounds, Soft Genitalia: Deferred Pelvic: Deferred Rectal: Deferred Extremities: No calf tenderness, Normal capillary refill, Normal range of motion, Non-tender, No pedal edema Musculoskeletal : Apperance: Normal Neurologic: Alert, tax accounting manager II-XII nml as Tested, No Motor Deficits, Normal Affect, Normal Mood, No Sensory Deficits Cerebellar Function: NOT DONE Reflexes: NOT DONE Skin: Dry, Warm, Wounds (Left 2nd toe redness open) Peripheral Pulses: 3+ Radial (R), 3+ Radial (L) Lymphatic: No Adenopathy Was a procedure done? Was a procedure done?: No Differential Diagnosis EXT Differential Diagnosis: Cellulitis X-Ray, Labs, Meds, VS Patient alert. Complaining of left foot redness. History of diabetes. Vitals stable. On examination warmth to touch along with redness of the 2nd toe increasing in diameter. Establish intravenous access. Was given Zosyn. Reviewed her previous visit. Explained to the patient. Continue cardiac monitoring. Time of 1ST Reevaluation: 11:13 Reevaluation 1ST: Unchanged Patient Education/Counseling: Diagnosis, Treatment Family Education/Counseling: No Family Present Additional Information I reviewed the following notes from patient's past medical encounters: 05/15/22 for osteomyelitis of right foot The following tests were ordered, and results were reviewed by me: Blood culture, lactic acid, CBC, BMP, UA Additional Information was gathered from interviewing the following independent historians: None I reviewed and agreed with the following test results read by other providers: None I discussed treatment and results with medical personnel. Departure 1 Departure Time of Disposition: 10:19 Impression: Primary Impression: Cellulitis of foot Disposition: ADMITTED INPATIENT Admit to: Med Surg Condition: Guarded Critical Care Note Critical Care Time?: No Stability Stability form required: No Heart Score Heart Score: Heart Score Response (Comments) Value History N/A 0 EKG N/A 0 Age N/A 0 Risk Factors N/A 0 Troponin N/A 0 Total 0 I personally scribed for TREMAINE VARGAS MD ([email or web address]) on 05/30/24 at 10:15. Electronically submitted by Steve Mayo ([email or web address]). I personally scribed for TREMAINE VARGAS MD ([email or web address]) on 05/30/24 at 10:16. Electronically submitted by Steve Mayo ([email or web address]). TREMAINE VARGAS MD May 30, 2024 10:15
[2024-05-30 10:56] LABS: Basophils # (auto) 0 10 ^3/uL (0-0.2); Basophils % (auto) 0.3 % (0.0-2.0); Eosinophils # (auto) 0.2 10 ^3/uL (0-0.8); Eosinophils % (auto) 1.7 % (0.0-7.0); Hematocrit 47.6 % (36.0-46.0); Hemoglobin 15.9 g/dL (12.2-16.2); Lymphocytes # (auto) 1.9 10 ^3/uL (0.4-5.4); Mean Corpuscular Hemoglobin 29.5 pg (28.0-32.0); Mean Corpuscular Hgb Conc. 33.4 g/dL (32.0-36.0); Mean Corpuscular Volume 88.1 fL (80.0-100.0); Monocytes # (auto) 0.9 10 ^3/uL (0-1.3); Monocytes % (auto) 7.4 % (0.0-12.0); Neutrophils # (auto) 9.1 10 ^3/uL (1.6-8.6); Neutrophils % (auto) 74.6 % (37.0-80.0); Platelet Count (auto) 256 10^3/uL (140-450); Red Blood Cells 5.41 10^6/uL (4.0-5.20); Red Cell Distribution Width 13.6 % (11.8-14.3); White Blood Cell 12.2 10^3/uL (4.4-10.8)
[2024-05-30 10:59] LABS: Sodium 139 mmol/L (136-145)
[2024-05-30 11:00] LABS: Anion Gap 8 (5-15); Carbon Dioxide 24 mmol/L (20-31)
[2024-05-30 11:01] LABS: Calcium 10.1 mg/dL (8.7-10.4)
[2024-05-30 11:05] LABS: BUN/Creatinine Ratio 20.3 (10.0-20.0); Blood Urea Nitrogen 15 mg/dL (9-23)
[2024-05-30] MEDS: PIPERACILLIN-TAZOB 3.375GM 100 ML IV ONE (11:06)
[2024-05-30 11:20] LABS: Chloride 107 mmol/L (98-107); Glucose 227 mg/dL (74-106)
--- NOTE | 2024-05-30 12:09 | DVH ---
CLINICAL INDICATION: 58 years old, Female; left 2nd toe pain and wound. TECHNIQUE: Noncontrast CT of the left foot was performed. Sagittal and coronal reformatted images are provided. COMPARISON: CT R FOOT WO CONTRAST on DOS: 02/23/22 CT Dose: CTDI volume is 7.75 mGy. Dose-length product is 199.95 mGy*cm FINDINGS: No fracture or dislocation. There is midfoot and hindfoot arthrosis characterized by joint space narr owing and subchondral cysts. There is no cortical destruction. There are 2nd through 5th hammertoe d eformities. There is a heel spur. Plantar calcaneal enthesophyte. Diffuse vascular arterial calcific ations. Soft tissue swelling in the forefoot. No fluid collection. IMPRESSION: 1. No CT evidence of osteomyelitis. 2. Soft tissue swelling in the forefoot which may reflect cellulitis. 3. Degenerative changes and 2nd through 5th hammertoes. All CT scans at this medical facility are performed using dose modulation techniques as appropriate t o a performed exam including the following: Automated exposure control was utilized; adjustment of th e MA and/or KV according to patient size; and use of iterative reconstruction technique.
[2024-05-30] MEDS ORDERED: HYDROcodone-ACET 5/325MG TAB PO PRN (12:45)
[2024-05-30] MEDS ORDERED: DEXTROSE (50%) 50ML SYRG IV PRN (12:45)
[2024-05-30] MEDS ORDERED: ACETAMINOPHEN 325 MG TAB PO PRN (12:45)
[2024-05-30] MEDS ORDERED: ONDANSETRON HCL 4 MG/2 ML VIAL IV PRN (12:45)
[2024-05-30] MEDS ORDERED: VANCOMYCIN PER PHARMACY 0 MG IV SCH (12:45)
[2024-05-30] MEDS ORDERED: ASPI-325 (13:03)
--- NOTE | 2024-05-30 13:08 | DVHHP2 ---
History of Present Illness Reason for Visit: Left 2nd toe open wound History of Present Illness Soniya Marshall is a 58-year-old female with past medical history of hypertension, hyperlipidemia, diabetes, and amputation of 2nd right toe in 2021 who presents to the ED with left 2nd toe open wound. Patient reports that this has been going on for several months and has an appointment with Podiatry in June 2024. Patient reports that she has a caregiver help her with her ADLs. Patient denies any recent sick contacts or recent injury or trauma, denies chest pain, shortness of breath, abdominal pain, nausea, vomiting, diarrhea, weakness, lightheadedness, and paresthesia. Cardiovascular: HTN, hyperipidemia Endocrine: Diabetes Past Surgical History: Other (Amputation of 2nd right toe in 2021) Family History: Other (Mom with asthma and dementia) Smoke: No ALCOHOL: none Drugs: None Lives: with Family Domestic Violence: Neg Review of Systems Constitutional: No: Fever, Chills, Sweats, Weakness, Malaise, Other Eyes: No: Pain, Vision change, Conjunctivae inflammation, Eyelid inflammation, Other, Redness ENT: No: Ear pain, Ear discharge, Nose pain, Nose discharge, Nose congestion, Mouth pain, Mouth swelling, Throat pain, Throat swelling, Other Respiratory: No: Cough, Dry, Shortness of breath, SOB with excertion, Wheezing, Hemoptysis, Pleuritic Pain, Sputum, Wheezing, Other Cardiovascular: No: Chest Pain, Palpitations, Orthopnea, Paroxysmal Noc. Dyspnea, Edema, Lt Headedness, Other Gastrointestinal: No: Nausea, Vomiting, Abdominal Pain, Diarrhea, Constipation, Melena, Hematochezia, Other Genitourinary: No Dysuria, No Frequency, No Incontinence, No Hematuria, No Retention, No Other Musculoskeletal: foot pain Skin: Other (Open wound left 2nd toe) Neurological: No: Weakness, Numbness, Incoordination, Change in speech, Con fusion, Seizures, Other Allergies: Coded Allergies: NO KNOWN ALLERGIES (Unverified , 08/06/13) Exam Vital Signs Vital Signs Date Time Temp Pulse Resp B/P (MAP) Pulse Ox O2 Delivery O2 Flow Rate FiO2 05/30/24 10:50 98.9 94 20 160/86 (110) 95 98.9 05/30/24 10:50 Room Air General Appearance: Alert, Oriented X3, Cooperative, No acute distress HEENT: Atraumatic, PERRLA, EOMI, Mucous membr. moist/pink Respiratory: Clear to auscultation, Normal air movement Cardiovascular: Regular rate, Normal S1, Normal S2, No murmurs Abdominal: Normal bowel sounds, Soft, No tenderness, No hepatospenomegaly, No masses Extremities: Normal pulses, Other (Used Doppler to assess pulses) Neuro: Normal speech, Strength at 5/5 X4 ext, Sensation intact Psych/Mental Status: Mental status NL, Mood NL Labs/Xrays Labs Test 05/30/24 10:25 05/30/24 10:09 Range/Units White Blood Count 12.2 H 4.4-10.8 10^3/uL Red Blood Count 5.41 H 4.0-5.20 10^6/uL Hemoglobin 15.9 12.2-16.2 g/dL Hematocrit 47.6 H 36.0-46.0 % Mean Corpuscular Volume 88.1 80.0-100.0 fL Mean Corpuscular Hemoglobin 29.5 28.0-32.0 pg Mean Corpuscular Hemoglobin Concent 33.4 32.0-36.0 g/dL Red Cell Distribution Width 13.6 11.8-14.3 % Platelet Count 256 140-450 10^3/uL Mean Platelet Volume 8.8 6.9-10.8 fL Neutrophils (%) (Auto) 74.6 37.0-80.0 % Lymphocytes (%) (Auto) 16.0 10.0-50.0 % Monocytes (%) (Auto) 7.4 0.0-12.0 % Eosinophils (%) (Auto) 1.7 0.0-7.0 % Basophils (%) (Auto) 0.3 0.0-2.0 % Neutrophils # (Auto) 9.1 H 1.6-8.6 10 ^3/uL Lymphocytes # (Auto) 1.9 0.4-5.4 10 ^3/uL Monocytes # (Auto) 0.9 0-1.3 10 ^3/uL Eosinophils # (Auto) 0.2 0-0.8 10 ^3/uL Basophils # (Auto) 0 0-0.2 10 ^3/uL Nucleated Red Blood Cells 0.0 % Sodium Level 139 136-145 mmol/L Potassium Level 4.0 3.5-5.1 mmol/L Chloride Level 107 98-107 mmol/L Carbon Dioxide Level 24 20-31 mmol/L Anion Gap 8 5-15 Blood Urea Nitrogen 15 9-23 mg/dL Creatinine 0.74 0.550-1.02 mg/dL Glomerular Filtration Rate Calc 93 >90 mL/min BUN/Creatinine Ratio 20.3 H 10.0-20.0 Serum Glucose 227 H 74-106 mg/dL Lactic Acid Level 1.2 0.4-2.0 mmol/L Calcium Level 10.1 8.7-10.4 mg/dL POC Glucose 210 H 70-106 mg/dl CLINICAL INDICATION: 58 years old, Female; left 2nd toe pain and wound. TECHNIQUE: Noncontrast CT of the left foot was performed. Sagittal and coronal reformatted images are provided. COMPARISON: CT R FOOT WO CONTRAST on DOS: 02/23/22 CT Dose: CTDI volume is 7.75 mGy. Dose-length product is 199.95 mGy*cm FINDINGS: No fracture or dislocation. There is midfoot and hindfoot arthrosis characterized by joint space narrowing and subchondral cysts. There is no cortical destruction. There are 2nd through 5th hammertoe deformities. There is a heel spur. Plantar calcaneal enthesophyte. Diffuse vascular arterial calcifications. Soft tissue swelling in the forefoot. No fluid collection. IMPRESSION: 1. No CT evidence of osteomyelitis. 2. Soft tissue swelling in the forefoot which may reflect cellulitis. 3. Degenerative changes and 2nd through 5th hammertoes. LEFT LOWER EXTREMITY VENOUS DOPPLER CLINICAL HISTORY: r/o dvt LLE TECHNIQUE: Lower extremity venous Doppler study was performed. COMPARISON: RT LOWER DVT on DOS: 02/23/22, RLDVT on DOS: 02/23/22 FINDINGS: The left common femoral, superficial femoral, popliteal, posterior tibial veins and trifurcation appear patent with normal augmentation, phasicity, compressibility and color-flow. IMPRESSION: 1. No sonographic evidence of DVT in the left leg. Assessment/Plan Assessment/Plan Assessment/Plan: Left 2nd toe cellulitis Leukocytosis likely due to left 2nd toe cellulitis Labs IV antibiotics-Zosyn+ vancomycin UA Lactic acid Blood cultures CT left toe CRP ESR Wound culture Podiatry consult A.m. labs Ultrasound left lower extremity duplex Diabetes type 2 uncontrolled Hemoglobin A1c ISS and Accu-Cheks Chronic hypertension Continue home medications Chronic hyperlipidemia Continue home medications Morbid obesity Counseled patient on lifestyle modifications, diet, and exercise FEN/PPX Diet Hep-Lock DVT prophylaxis-patient on aspirin PUD prophylaxis-not indicated no history of GERD or GI bleed Admit to med surge Discussed plan of care with patient and nurse Home medications reconciled Plan discussed with: Patient My Orders Orders - VISHNU LOVE Procedure Category Date Status Time Ct L Foot Wo Contrast CT 05/30/24 Resulted 11:03 Date of Service: May 30, 2024 Billing Provider: VISHNU LOVE Common Visit Codes: [id number] INP/OBS CARE (HIGH) VISHNU LOVE May 30, 2024 13:08
[2024-05-30 14:04] LABS: Erythrocyte Sedimentation Rate 13 mm/hr (0-20)
[2024-05-30] MEDS: PIPERACILLIN-TAZOB 3.375GM 100 ML IV SCH (15:01)
[2024-05-30] MEDS: VANCOMYCIN 1GM/250ML KIT 250 ML IV SCH (15:17)
--- NOTE | 2024-05-30 17:36 | DVH ---
LEFT LOWER EXTREMITY VENOUS DOPPLER CLINICAL HISTORY: r/o dvt LLE TECHNIQUE: Lower extremity venous Doppler study was performed. COMPARISON: RT LOWER DVT on DOS: 02/23/22, RLDVT on DOS: 02/23/22 FINDINGS: The left common femoral, superficial femoral, popliteal, posterior tibial veins and trifurcation [place] patent with normal augmentation, phasicity, compressibility and color-flow. IMPRESSION: 1. No sonographic evidence of DVT in the left leg. HS:Y
[2024-05-30] MEDS: InsuLIN REG 1unit/0.01ml Soln (100units/ml) SC SCH (18:08)
[2024-05-30] MEDS: ACCU-CHEK COMFORT CURVE STRIP VI SCH (18:10)
[2024-05-30 19:39] LABS: Urine Bacteria None Seen /hpf (None Seen)
[2024-05-30 20:00] LABS: Urine Blood TRACE /uL (Negative); Urine Clarity Turbid (Clear); Urine Color Light-Yellow (Yellow); Urine Mucus FEW (None Seen); Urine Protein, UAD TRACE (Negative); Urine Specific Gravity 1.019 (1.001-1.035); Urine Squamous Epithelial Cell FEW /hpf (<5); Urine Urobilinogen Normal (Negative); Urine WBC 52 /HPF (0-5)
[2024-05-31] VITALS (9 sets, daily range): BP systolic 101–164; BP diastolic 51–91; PULSE 72–104; RESP 16–20; TEMP 98–98.2; O2SAT 91–100
[2024-05-31] MEDS: VANCOMYCIN 1.5GM/300ML 300 ML IV SCH (04:29)
[2024-05-31 06:18] LABS: Basophils # (auto) 0 10 ^3/uL (0-0.2); Basophils % (auto) 0.4 % (0.0-2.0); Eosinophils # (auto) 0.2 10 ^3/uL (0-0.8); Eosinophils % (auto) 2.1 % (0.0-7.0); Hematocrit 46.8 % (36.0-46.0); Hemoglobin 15.5 g/dL (12.2-16.2); Lymphocytes # (auto) 1.1 10 ^3/uL (0.4-5.4); Lymphocytes % (auto) 10.5 % (10.0-50.0); Mean Corpuscular Hemoglobin 29.4 pg (28.0-32.0); Mean Corpuscular Hgb Conc. 33.2 g/dL (32.0-36.0); Mean Corpuscular Volume 88.4 fL (80.0-100.0); Monocytes % (auto) 9.2 % (0.0-12.0); Neutrophils # (auto) 8.4 10 ^3/uL (1.6-8.6); Neutrophils % (auto) 77.8 % (37.0-80.0); Platelet Count (auto) 233 10^3/uL (140-450); Red Blood Cells 5.29 10^6/uL (4.0-5.20); Red Cell Distribution Width 13.5 % (11.8-14.3); White Blood Cell 10.8 10^3/uL (4.4-10.8)
[2024-05-31 06:38] LABS: Alanine Aminotransferase 14 U/L (7-40); Albumin 4.2 g/dL (3.2-4.8); Alkaline Phosphatase 87 U/L (46-116); Anion Gap 9 (5-15); Aspartate Aminotransferase 13 U/L (13-40); BUN/Creatinine Ratio 16.4 (10.0-20.0); Blood Urea Nitrogen 20 mg/dL (9-23); Calcium 9.7 mg/dL (8.7-10.4); Carbon Dioxide 25 mmol/L (20-31); Chloride 107 mmol/L (98-107); Glucose 211 mg/dL (74-106); Potassium 3.6 mmol/L (3.5-5.1); Sodium 141 mmol/L (136-145)
[2024-05-31 06:39] LABS: Bilirubin, Total 1.7 mg/dL (0.2-1.0)
[2024-05-31] MEDS: ATORVASTATIN 20 MG TAB PO SCH (09:47)
[2024-05-31] MEDS: [UNRECOGNIZED DRUG - OTHER] PO SCH (09:47)
[2024-05-31] MEDS: ERTUGLIFLOZIN PO SCH (09:47)
[2024-05-31] MEDS: LISINOPRIL 20 MG TAB PO SCH (09:48)
[2024-05-31] MEDS ORDERED: PATIENTS OWN MEDICATION (Lisinopril 40 MG) PO SCH (10:00)
[2024-05-31] MEDS ORDERED: CYMBALTA 60 MG PO SCH (10:00)
--- NOTE | 2024-05-31 13:11 | DVHPN2 ---
Reviewed: Care Plan, H&P, Labs, Medications, Previous Orders, Radiology Changes from previous H/P or p: No Changes Eyes: No Pain, No Vision change, No Conjunctivae inflammation, No Eyelid inflammation, No Other, No Redness ENT: No Ear pain, No Ear discharge, No Nose pain, No Nose discharge, No Nose congestion, No Mouth pain, No Mouth swelling, No Throat pain, No Throat swelling, No Other Cardiovascular: No Chest Pain, No Palpitations, No Orthopnea, No Paroxysmal Noc. Dyspnea, No Edema, No Lt Headedness, No Other Respiratory: No Cough, No Dry, No Shortness of breath, No SOB with excertion, No Wheezing, No Hemoptysis, No Pleuritic Pain, No Sputum, No Other Gastrointestinal: No Nausea, No Vomiting, No Abdominal Pain, No Diarrhea, No Constipation, No Melena, No Hematochezia, No Other Genitourinary: No Dysuria, No Frequency, No Incontinence, No Hematuria, No Retention, No Other Musculoskeletal: foot pain Skin: Other (Open wound left 2nd toe) Objective Vitals Vital Signs Date Time Temp Pulse Resp B/P (MAP) Pulse Ox O2 Delivery O2 Flow Rate FiO2 05/31/24 09:48 149/86 05/31/24 08:45 98.0 82 17 94 98.0 05/31/24 08:15 Room Air* 0 21 Intake/Output Intake and Output 05/31/24 07:00 Intake Total 1550 ml Balance 1550 ml Intake Oral 600 ml IV Total 950 ml # Voids 1 Medications Current Medications Medications Dose Ordered Sig/Joel Route Start Time Stop Time Status Last Admin Dose Admin Vancomycin HCl 0 ml @ 0 mls/hr UD IV 05/30/24 12:45 Piperacillin Sod/ Tazobactam Sod 100 ml @ 25 mls/hr Q8HR IV 05/30/24 14:00 05/31/24 06:39 25 MLS/HR Diagnostic Test (Pha) 1 strip ACHS 05/30/24 17:00 05/31/24 12:44 1 STRIP Insulin Human Regular ACHS SC 05/30/24 17:00 05/31/24 12:52 4 UNITS Dextrose 50 ml UD PRN IV 05/30/24 12:45 Acetaminophen/ Hydrocodone Bitart 1 tab Q4HP PRN PO 05/30/24 12:45 Ondansetron HCl 4 mg Q4HP PRN IV 05/30/24 12:45 Acetaminophen 650 mg Q6HP PRN PO 05/30/24 12:45 Atorvastatin Calcium 20 mg DAILY PO 05/31/24 10:00 05/31/24 09:47 20 MG Patient Own Medication 1 cap DAILY PO 05/31/24 10:00 Hold Patient Own Medication 1 tab DAILY PO 05/31/24 10:00 Patient Own Medication 40 mg DAILY PO 05/31/24 10:00 UNV Lisinopril 40 mg DAILY PO 05/31/24 10:00 05/31/24 09:48 40 MG Vancomycin HCl 300 ml @ 200 mls/hr Q12H IV 05/31/24 04:00 05/31/24 04:29 200 MLS/HR Laboratory Results Laboratory Tests 05/31/24 05:36 Chemistry Test 05/31/24 05:36 Albumin 4.2 g/dL (3.2-4.8) Calcium Level 9.7 mg/dL (8.7-10.4) Total Protein 7.0 g/dL (5.7-8.2) LFT Test 05/31/24 05:36 Alanine Aminotransferase (ALT) 14 U/L (7-40) Alkaline Phosphatase 87 U/L (46-116) Aspartate Amino Transferase (AST) 13 U/L (13-40) Total Bilirubin 1.7 mg/dL (0.2-1.0) H Urinalysis Test 05/30/24 19:37 Urine Color Light-yellow (Yellow) Urine Clarity Turbid (Clear) H Urine pH 5.0 (5.0-9.0) Urine Specific [place] 1.019 (1.001-1.035) Urine Protein Trace (Negative) H Urine Ketones Negative (Negative) Urine Blood Trace /uL (Negative) H Urine Nitrite Negative (Negative) Urine Bilirubin Negative (Negative) Urine Urobilinogen Normal mg/dL (Negative) Urine Leukocyte Esterase 2+ /uL (Negative) Urine RBC 5 /hpf (0 - 4) Urine Microscopic WBC 52 /HPF (0-5) H Urine Squamous Epithelial Cells Few /hpf (<5) Urine Bacteria None seen /hpf (None Seen) Urine Mucus Few (None Seen) Urine Glucose 1+ mg/dL (Normal) H Microbiology Microbiology Date/Time Source Procedure Growth Status 05/30/24 10:25 Blood Blood Culture - Preliminary NO GROWTH AFTER 24 HOURS OF INCUBATION. Resulted Labs and/or images reviewed: Labs reviewed by me, Image(s) reviewed by me Assessment/Plan Assessment/Plan Sepsis secondary to left 2nd toe infection: Blood cultures, wound cultures Left 2nd toe infection: Vancomycin Zosyn consult for Dr. Crowley Uncontrolled diabetes: Insulin sliding scale Hypertension Hypercholesterolemia History of right 2nd toe amputation Time spent 45 minute Plan discussed with: Patient My Orders Orders - DOMINGA SCHULTE MD Procedure Category Date Status Time Cleanse Wound With Ns FORTUNATO 05/31/24 In Process 11:20 * Dietary Consult CONS 05/31/24 Transmitted 11:42 Urine Bacterial LAURA 05/31/24 Verified Culture 13:05 Date of Service: May 31, 2024 Billing Provider: DOMINGA SCHUTLE MD Common Visit Codes: [id number] INP/OBS CARE(HIGH) Secondary Visit Codes: [id number] CARE PLAN 30 MINUTES DOMINGA SCHULTE MD May 31, 2024 13:11
--- NOTE | 2024-05-31 18:21 | DVH ---
EXAM: MRI MRI L FOOT WO CONTRAST HISTORY: OSTEO COMPARISON: CT CT L FOOT WO CONTRAST on DOS: 05/30/24, CT R FOOT WO CONTRAST on DOS: 02/23/22 TECHNIQUE: Multiplanar, multisequence MRI of the left foot was performed. FINDINGS: An ulcer is seen on dorsal aspect of the 2nd PIP joint. Extensive bone marrow edema is seen involving the 2nd proximal and middle phalanges foci of cortical erosion compatible with osteomyelitis. No itzel int effusion or lytic osseous lesion noted. Mild hallux valgus deformity and moderate 1st MTP joint o steoarthritis. Mild scattered IP joint osteoarthritis noted. The Lisfranc ligament is intact. The visualized portions of tibialis posterior, flexor hallucis longus, and flexor digitorum tendons a re intact. Visualized portions of peroneus longus and brevis tendons are intact. Visualized portion s of the tibialis anterior, extensor digitorum, and extensor hallucis tendons are intact. The partially visualized plantar fascia is intact. Moderate dorsal subcutaneous edema noted. There is no evidence of intermetatarsal bursitis or Barclay' s neuroma. Moderate plantar muscle atrophy and edema noted. IMPRESSION: 1. Ulcer on dorsal aspect of the 2nd PIP joint with underlying osteomyelitis of the 2nd proximal and middle phalanges. No signs of septic joint. No drainable fluid collection is identified in this limit ed unenhanced study. 2. Moderate dorsal subcutaneous edema and mild plantar muscle edema and fatty atrophy.
[2024-06-01] VITALS (9 sets, daily range): BP systolic 106–149; BP diastolic 53–91; PULSE 67–104; RESP 18–20; TEMP 97.3–98.2; O2SAT 94–100
[2024-06-01 06:42] LABS: Calcium 10.1 mg/dL (8.7-10.4); Potassium 3.6 mmol/L (3.5-5.1); Sodium 141 mmol/L (136-145)
[2024-06-01 06:43] LABS: Anion Gap 9 (5-15); Carbon Dioxide 23 mmol/L (20-31); Chloride 109 mmol/L (98-107)
[2024-06-01 06:51] LABS: Blood Urea Nitrogen 27 mg/dL (9-23); Glucose 194 mg/dL (74-106)
--- NOTE | 2024-06-01 08:21 | DVHPN2 ---
Reviewed: Care Plan, H&P, Labs, Medications, Previous Orders, Radiology Changes from previous H/P or p: No Changes Eyes: No Pain, No Vision change, No Conjunctivae inflammation, No Eyelid inflammation, No Other, No Redness ENT: No Ear pain, No Ear discharge, No Nose pain, No Nose discharge, No Nose congestion, No Mouth pain, No Mouth swelling, No Throat pain, No Throat swelling, No Other Cardiovascular: No Chest Pain, No Palpitations, No Orthopnea, No Paroxysmal Noc. Dyspnea, No Edema, No Lt Headedness, No Other Respiratory: No Cough, No Dry, No Shortness of breath, No SOB with excertion, No Wheezing, No Hemoptysis, No Pleuritic Pain, No Sputum, No Other Gastrointestinal: No Nausea, No Vomiting, No Abdominal Pain, No Diarrhea, No Constipation, No Melena, No Hematochezia, No Other Genitourinary: No Dysuria, No Frequency, No Incontinence, No Hematuria, No Retention, No Other Musculoskeletal: foot pain Skin: Other (Open wound left 2nd toe) Objective Vitals Vital Signs Date Time Temp Pulse Resp B/P (MAP) Pulse Ox O2 Delivery O2 Flow Rate FiO2 06/01/24 05:00 97.3 67 18 118/53 (74) 97 97.3 06/01/24 00:02 Room Air* 0 21 Intake/Output Intake and Output 06/01/24 07:00 Intake Total 1750 ml Balance 1750 ml Intake Oral 1750 ml # Voids 5 # Bowel Movements 2 Medications Current Medications Medications Dose Ordered Sig/Joel Route Start Time Stop Time Status Last Admin Dose Admin Vancomycin HCl 0 ml @ 0 mls/hr UD IV 05/30/24 12:45 Piperacillin Sod/ Tazobactam Sod 100 ml @ 25 mls/hr Q8HR IV 05/30/24 14:00 06/01/24 06:00 25 MLS/HR Diagnostic Test (Pha) 1 strip ACHS 05/30/24 17:00 06/01/24 06:02 1 STRIP Insulin Human Regular ACHS SC 05/30/24 17:00 06/01/24 06:02 2 UNITS Dextrose 50 ml UD PRN IV 05/30/24 12:45 Acetaminophen/ Hydrocodone Bitart 1 tab Q4HP PRN PO 05/30/24 12:45 Ondansetron HCl 4 mg Q4HP PRN IV 05/30/24 12:45 Acetaminophen 650 mg Q6HP PRN PO 05/30/24 12:45 Atorvastatin Calcium 20 mg DAILY PO 05/31/24 10:00 05/31/24 09:47 20 MG Patient Own Medication 1 cap DAILY PO 05/31/24 10:00 Hold Patient Own Medication 1 tab DAILY PO 05/31/24 10:00 Patient Own Medication 40 mg DAILY PO 05/31/24 10:00 UNV Lisinopril 40 mg DAILY PO 05/31/24 10:00 05/31/24 09:48 40 MG Vancomycin HCl 300 ml @ 200 mls/hr Q12H IV 05/31/24 04:00 06/01/24 03:03 200 MLS/HR Laboratory Results Laboratory Tests 05/31/24 05:36 06/01/24 05:32 Chemistry Test 06/01/24 05:32 Calcium Level 10.1 mg/dL (8.7-10.4) Coagulation Test 06/01/24 05:32 Prothrombin Time Pending Prothrombin Time INR Pending Activated Partial Thromboplast Time Pending Urinalysis Test 05/30/24 19:37 Urine Color Light-yellow (Yellow) Urine Clarity Turbid (Clear) H Urine pH 5.0 (5.0-9.0) Urine Specific [place] 1.019 (1.001-1.035) Urine Protein Trace (Negative) H Urine Ketones Negative (Negative) Urine Blood Trace /uL (Negative) H Urine Nitrite Negative (Negative) Urine Bilirubin Negative (Negative) Urine Urobilinogen Normal mg/dL (Negative) Urine Leukocyte Esterase 2+ /uL (Negative) Urine RBC 5 /hpf (0 - 4) Urine Microscopic WBC 52 /HPF (0-5) H Urine Squamous Epithelial Cells Few /hpf (<5) Urine Bacteria None seen /hpf (None Seen) Urine Mucus Few (None Seen) Urine Glucose 1+ mg/dL (Normal) H Microbiology Microbiology Date/Time Source Procedure Growth Status 05/30/24 10:25 Blood Blood Culture - Preliminary NO GROWTH AFTER 24 HOURS OF INCUBATION. Resulted Labs and/or images reviewed: Labs reviewed by me, Image(s) reviewed by me Assessment/Plan Assessment/Plan Sepsis secondary to left 2nd toe infection: Blood cultures, wound cultures Left 2nd toe infection and osteomyelitis: Vancomycin 1 g IV daily, Zosyn 3.375 g IV q.[address] Funes, patient getting incision and drainage by Dr Funes today Uncontrolled diabetes: Insulin sliding scale Hypertension Hypercholesterolemia History of right 2nd toe amputation Time spent 35 minute Plan discussed with: Patient My Orders Orders - DOMINGA SCHULTE MD Procedure Category Date Status Time Cleanse Wound With Ns FORTUNATO 05/31/24 In Process 11:20 * Dietary Consult CONS 05/31/24 Transmitted 11:42 Urine Bacterial LAURA 05/31/24 In Process Culture 13:05 Date of Service: Jun 01, 2024 Billing Provider: DOMINGA SCHULTE MD Common Visit Codes: [id number] INP/OBS CARE(HIGH) DOMINGA SCHULTE MD Jun 01, 2024 08:21
[2024-06-01 08:33] LABS: INR 1.06 (0.9-1.15); Partial Thromboplastin Time 31.7 SEC (24.5-34.5); Prothrombin Time 11.2 sec (9.3-11.8)
[2024-06-01] MEDS: BUPIVACAINE 0.5% P/F INJ 10 ML VIAL ONE (10:34)
[2024-06-01] MEDS ORDERED: fentaNYL CITRATE 100 MCG/2 ML VL ONE (10:46)
[2024-06-01] MEDS ORDERED: MIDAZOLAM HCL 2MG/2ML 2ml VIAL (1mg/ml) ONE (10:46)
--- NOTE | 2024-06-01 11:23 | DVHINCON2 ---
Date Seen: Jun 01, 2024 Reason for Consultation Left toe wound History of Present Illness Soniya Marshall is a 58-year-old female with past medical history of hypertension, hyperlipidemia, diabetes, and amputation of 2nd right toe in 2021 who presents to the ED with left 2nd toe open wound. Patient reports that this has been going on for several months and has an appointment with Podiatry in June 2024. Patient reports that she has a caregiver help her with her ADLs. Patient denies any recent sick contacts or recent injury or trauma, denies chest pain, shortness of breath, abdominal pain, nausea, vomiting, diarrhea, weakness, lightheadedness, and paresthesia. Past Medical History See H&P Past Surgical History See H&P Family History: Asthma G8 MOTHER Allergies: Coded Allergies: NO KNOWN ALLERGIES (Unverified , 08/06/13) Home Meds Active Scripts Clindamycin Hcl (Clindamycin Hcl) 300 Mg Cap, 1 CAP PO TID, #30 CAP Prov:RENAN SKINNER MD 02/26/22 Reported Medications Aspirin (Aspirin Low Dose) 81 Mg Tab, 1 DAILY 05/30/24 Ertugliflozin l-Pyroglutamic A (Steglatro) 5 Mg Tab, 1 TAB PO DAILY 02/23/22 Atorvastatin Calcium (ATORVASTATIN CALCIUM) 20 Mg Tab, 1 TAB PO DAILY 02/23/22 Duloxetine HCl (Duloxetine HCl) 60 Mg Cap, 1 CAP PO DAILY 02/23/22 Lisinopril (Lisinopril) 40 Mg Tab, 40 MG PO DAILY for 30 Days, MG 05/27/17 Metformin Hydrochloride (Metformin Hcl) 500 Mg Tab, 1 TAB PO DAILY, #60 TAB 3 Refills 05/27/17 Vital Signs Vital Signs Date Time Temp Pulse Resp B/P (MAP) Pulse Ox O2 Delivery O2 Flow Rate FiO2 06/01/24 09:48 137/72 06/01/24 09:00 97.5 78 18 97 97.5 06/01/24 08:00 Room Air* 0 21 Physical Exam DERMATOLOGIC EXAM: - Skin is dry and cool to the touch dry bilaterally. - Nails 1-5 of the bilateral foot are thickened, discolored, dystrophic, and tender to palpate with subungual debris - Hair loss noted to bilateral feet Wound #1: Location: Left 2nd toe Measurements: Length 1 cm x width 0.5 cm x depth 0.5 cm. Wound margins: Hyperkeratotic. Wound base: Full thickness. General Appearance: Healthy and bleeding. Probes to Bone: yes Purulent drainage: yes Serous drainage: No Erythema: Periwound VASCULAR EXAM: - DP and PT pulses are palpable bilaterally. - [employer] is brisk to all digits. - Feet are cool to touch compared to lower legs bilaterally. NEUROLOGIC EXAM: - Normal light touch sensation to the superficial peroneal, deep peroneal, sural, saphenous, and tibial nerve branches. - Protective sensation is diminished as tested with a 5.07 10g [place] bilaterally. MUSCULOSKELETAL EXAM: - No gross deformities - Muscle strength is 5/5 and active motion is pain-free and symmetrical bilaterally - No pain or crepitation with passive range of motion bilaterally to all major pedal joints Labs/Diagnostic Data Labs Test 06/01/24 05:58 06/01/24 05:32 06/01/24 02:58 05/31/24 05:36 Range/Units POC Glucose 191 H 70-106 mg/dl Prothrombin Time 11.2 9.3-11.8 sec Prothrombin Time INR 1.06 0.9-1.15 Activated Partial Thromboplast Time 31.7 24.5-34.5 SEC Sodium Level 141 136-145 mmol/L Potassium Level 3.6 3.5-5.1 mmol/L Chloride Level 109 H 98-107 mmol/L Carbon Dioxide Level 23 20-31 mmol/L Anion Gap 9 5-15 Blood Urea Nitrogen 27 H 9-23 mg/dL Creatinine 1.59 #H 0.550-1.02 mg/dL Glomerular Filtration Rate Calc 37 >90 mL/min BUN/Creatinine Ratio 17.0 10.0-20.0 Serum Glucose 194 H 74-106 mg/dL Calcium Level 10.1 8.7-10.4 mg/dL Vancomycin Level Trough 28.1 H 5-10 ug/mL White Blood Count 10.8 4.4-10.8 10^3/uL Red Blood Count 5.29 H 4.0-5.20 10^6/uL Hemoglobin 15.5 12.2-16.2 g/dL Hematocrit 46.8 H 36.0-46.0 % Mean Corpuscular Volume 88.4 80.0-100.0 fL Mean Corpuscular Hemoglobin 29.4 28.0-32.0 pg Mean Corpuscular Hemoglobin Concent 33.2 32.0-36.0 g/dL Red Cell Distribution Width 13.5 11.8-14.3 % Platelet Count 233 140-450 10^3/uL Mean Platelet Volume 8.8 6.9-10.8 fL Neutrophils (%) (Auto) 77.8 37.0-80.0 % Lymphocytes (%) (Auto) 10.5 10.0-50.0 % Monocytes (%) (Auto) 9.2 0.0-12.0 % Eosinophils (%) (Auto) 2.1 0.0-7.0 % Basophils (%) (Auto) 0.4 0.0-2.0 % Neutrophils # (Auto) 8.4 1.6-8.6 10 ^3/uL Lymphocytes # (Auto) 1.1 0.4-5.4 10 ^3/uL Monocytes # (Auto) 1.0 0-1.3 10 ^3/uL Eosinophils # (Auto) 0.2 0-0.8 10 ^3/uL Basophils # (Auto) 0 0-0.2 10 ^3/uL Nucleated Red Blood Cells 0.0 % Total Bilirubin 1.7 H 0.2-1.0 mg/dL Aspartate Amino Transferase (AST) 13 13-40 U/L Alanine Aminotransferase (ALT) 14 7-40 U/L Alkaline Phosphatase 87 46-116 U/L Total Protein 7.0 5.7-8.2 g/dL Albumin 4.2 3.2-4.8 g/dL Test 05/30/24 19:37 05/30/24 10:25 Range/Units Urine Color Light-yellow Yellow Urine Clarity Turbid H Clear Urine pH 5.0 5.0-9.0 Urine Specific [place] 1.019 1.001-1.035 Urine Protein Trace H Negative Urine Ketones Negative Negative Urine Blood Trace H Negative /uL Urine Nitrite Negative Negative Urine Bilirubin Negative Negative Urine Urobilinogen Normal Negative mg/dL Urine Leukocyte Esterase 2+ Negative /uL Urine RBC 5 0 - 4 /hpf Urine Microscopic WBC 52 H 0-5 /HPF Urine Squamous Epithelial Cells Few <5 /hpf Urine Bacteria None seen None Seen /hpf Urine Mucus Few None Seen Urine Glucose 1+ H Normal mg/dL Erythrocyte Sedimentation Rate 13 0-20 mm/hr Hemoglobin A1c 7.7 H <5.7 % A1C Lactic Acid Level 1.2 0.4-2.0 mmol/L C-Reactive Protein High Sensitivity 5.29 H <1.0 mg/dL Microbiology Date/Time Source Procedure Growth Status 05/30/24 10:25 Blood Blood Culture - Preliminary NO GROWTH AFTER 48 HOURS OF INCUBATION. Resulted Problems(with codes): (1) Acute chest pain (2) acute dehydration (3) acute thrombocytopenia (4) cannot rule out acute coronary syndrome (5) Leukocytosis (6) Encounter for care related to Port-a-Cath (7) Hyperglycemia (8) Cellulitis of right leg (9) Foot osteomyelitis, right (10) On antibiotic therapy (11) Cellulitis of foot (12) Status post peripherally inserted central catheter (PICC) central line placement Plan/Recommendation ASSESSMENT: Patient is a year old seen on the floor for a worsening ulcer PLAN: - The patients chart was reviewed, clinical findings were discussed with the patient, the etiologies of the conditions were discussed in detail, and a treatment plan was agreed to at this time, with both oral and written instructions provided. - reviewed advanced imaging - discussed plan is to perform an incision and drainage - patient will be NPO at midnight - take her to the OR today - patient will return to the OR at a future date for closure - we will get cultures in the OR - can weightbear as tolerated in postoperative shoe All questions were answered and concerns addressed to the patient's satisfaction. The patient was given the phone number to the clinic and was told how to make contact with the clinic should any concerns or questions arise. Patient understands that if any questions or concerns arise prior to the next appointment, we should be contacted immediately. FOLLOW-UP: Continue to follow while inpatient Plan discussed with: Patient Date of Service: Jun 01, 2024 Billing Provider: MONTANA MORALES DPM Common Visit Codes: [id number] INP/OBS CARE (HIGH) MONTANA MORALES DPM Jun 01, 2024 11:23
[2024-06-01] MEDS ORDERED: PROPOFOL 10 MG/ML 20 ML IV ONE (11:54)
[2024-06-01] MEDS ORDERED: DexAMETHasone SOD PHOS 10MG/1ML VIAL INJ ONE (11:54)
--- NOTE | 2024-06-01 12:02 | DVH ---
CHEST RADIOGRAPH Indication: SURGERY/pain Technique: Single frontal view of the chest was obtained Comparison: CHEST XRAY 1 VIEW on DOS: 05/14/22, CXR1 on DOS: 05/14/22, CHEST PORTABLE on DOS: 04/12/22, CX RP on DOS: 04/12/22, EKG on DOS: 02/23/22 FINDINGS: Lines and Tubes: None Lungs: No focal consolidation. Pleura: No effusion. No pneumothorax. Cardiomediastinal contours: Unremarkable Bones: No acute osseous abnormality. IMPRESSION: No acute cardiopulmonary disease.
--- NOTE | 2024-06-01 12:08 | DVHOP2 ---
Operative Report - 2 Report Details Date: 06/01/24 Preop Diagnosis: 1. Left foot osteomyelitis 2. Left foot cellulitis 3. Left foot abscess 4. Left foot hammertoe Postop Diagnosis: Same as preop Surgeon: Montana Morales MD Anesthesiologist: See anesthesia Anesthesia: Mac Consent: The patient was informed of the risks and benefits of the procedure. These include but are not limited to complications of anesthesia, postoperative infection, incomplete relief of symptoms, recurrence of symptoms, damage to blood vessels, nerves and tendons, deep venous thrombosis, pulmonary embolism and possible need for repeat surgery in the future. Complications: None Estimated Blood Loss: Minimal Fluids: See anesthesia Findings: Consistent with the diagnosis Indications for Surgery: Worsening left foot wound Name of Procedure Performed 1. Left foot I&D to bone (34907) 2. Left foot bone biopsy () 3. Left foot flexor tenotomy (20063) Procedure Details Procedure Details: PRE-PROCEDURE INFORMATION: In the pre-op holding area, the extremity to be operated on was clearly marked and the patient verified correct laterality of the marking. The patient was transferred to the OR table and placed in a supine position. A timeout was performed in which identification of the correct patient, procedure, location, and materials was done. The left foot and leg were prepped and draped in normal sterile fashion. DESCRIPTION OF PROCEDURE: Attention was directed to the left where area of fluctuance was noted. An incision was made over this area and was deepened through blunt dissection. The incision was deepened to the level of abscess and bone. Care was taken to the dissection to avoid any neurovascular and tendinous structures. The incision was deepened to the bone, and the abscess appeared to be purulent fluid consistent with pus. The cortices of the bone was then removed with [place]o an all necrotic tissue. After the abscess was drained, the area was irrigated with 3 L normal saline using cysto tubing. Deep cultures were then obtained from the wound. A bone biopsy was then taken of the left 2nd toe which was deepened to the muscle belly and tendons. The bone was then sent to pathology to determine the extent of osteomyelitis. Using a 18 gauge needle, the toe was extended and a sweeping motion was made on the FDL. It was noted that the contracture of the digit was then relieved after the flexor tendon was released. The area was then inspected and any areas of tracking, especially along the tendons were also drained. The wound was packed with Betadine-soaked gauze and we will need to be closed at a later date. POSTOPERATIVE INFORMATION: The patient tolerated the above noted procedure and anesthesia well and was transferred to the PACU with vital signs stable, and vascular status intact with capillary refill intact to all digits. Deep cultures were taken patient will return to the floor IV antibiotics. Patient will return to the OR on Tuesday for a delayed closure. Specimen: Left 2nd toe proximal phalanx Condition Good Disposition Still a Patient MONTANA MORALES DPM Jun 01, 2024 12:08
[2024-06-01] MEDS ORDERED: MIDAZOLAM HCL 2MG/2ML 2ml VIAL (1mg/ml) IV PRN (12:15)
[2024-06-01] MEDS ORDERED: ePHEDrine SULFATE 50 MG/ML AMP IV PRN (12:15)
[2024-06-01] MEDS ORDERED: hydrALAZINE HCL 20 MG/ML VL IV PRN (12:15)
[2024-06-01] MEDS ORDERED: MORPHINE SULFATE 4 MG/ML SYR/VIAL IV PRN (12:15)
[2024-06-01] MEDS: ONDANSETRON HCL 4 MG/2 ML VIAL IV ONE (12:34)
[2024-06-01] MEDS ORDERED: LIDOCAINE 1% (LOCAL ANESTH.) PF 5ml SDV ID ONE (16:30)
[2024-06-01] MEDS ORDERED: SODIUM CHLOR 0.9% PF (SALINE LOCK) 10ML VIAL/SYR IV SCH (22:00)
[2024-06-02] VITALS (7 sets, daily range): BP systolic 113–134; BP diastolic 53–83; PULSE 66–97; RESP 18–20; TEMP 97.3–98.3; O2SAT 93–98
--- NOTE | 2024-06-02 08:01 | DVHPN2 ---
Reviewed: Care Plan, H&P, Labs, Medications, Previous Orders, Radiology Changes from previous H/P or p: No Changes Eyes: No Pain, No Vision change, No Conjunctivae inflammation, No Eyelid inflammation, No Other, No Redness ENT: No Ear pain, No Ear discharge, No Nose pain, No Nose discharge, No Nose congestion, No Mouth pain, No Mouth swelling, No Throat pain, No Throat swelling, No Other Cardiovascular: No Chest Pain, No Palpitations, No Orthopnea, No Paroxysmal Noc. Dyspnea, No Edema, No Lt Headedness, No Other Respiratory: No Cough, No Dry, No Shortness of breath, No SOB with excertion, No Wheezing, No Hemoptysis, No Pleuritic Pain, No Sputum, No Other Gastrointestinal: No Nausea, No Vomiting, No Abdominal Pain, No Diarrhea, No Constipation, No Melena, No Hematochezia, No Other Genitourinary: No Dysuria, No Frequency, No Incontinence, No Hematuria, No Retention, No Other Musculoskeletal: foot pain Skin: Other (Open wound left 2nd toe) Objective Vitals Vital Signs Date Time Temp Pulse Resp B/P (MAP) Pulse Ox O2 Delivery O2 Flow Rate FiO2 06/02/24 05:00 97.6 74 20 116/53 (74) 97 97.6 06/01/24 20:00 Room Air* 0 21 Intake/Output Intake and Output 06/02/24 07:00 Intake Total 1910 ml Output Total 2 ml Balance 1908 ml Intake Oral 1610 ml IV Total 300 ml Output Stool Total 2 ml # Voids 6 Medications Current Medications Medications Dose Ordered Sig/Joel Route Start Time Stop Time Status Last Admin Dose Admin Piperacillin Sod/ Tazobactam Sod 100 ml @ 25 mls/hr Q8HR IV 05/30/24 14:00 06/02/24 06:23 25 MLS/HR Diagnostic Test (Pha) 1 strip ACHS 05/30/24 17:00 06/02/24 06:39 1 STRIP Insulin Human Regular ACHS SC 05/30/24 17:00 06/02/24 06:39 4 UNITS Dextrose 50 ml UD PRN IV 05/30/24 12:45 Acetaminophen/ Hydrocodone Bitart 1 tab Q4HP PRN PO 05/30/24 12:45 Ondansetron HCl 4 mg Q4HP PRN IV 05/30/24 12:45 Acetaminophen 650 mg Q6HP PRN PO 05/30/24 12:45 Atorvastatin Calcium 20 mg DAILY PO 05/31/24 10:00 05/31/24 09:47 20 MG Patient Own Medication 1 cap DAILY PO 05/31/24 10:00 Hold Patient Own Medication 1 tab DAILY PO 05/31/24 10:00 Patient Own Medication 40 mg DAILY PO 05/31/24 10:00 UNV Lisinopril 40 mg DAILY PO 05/31/24 10:00 05/31/24 09:48 40 MG Linezolid 300 ml @ 150 mls/hr Q12HR IV 06/02/24 10:00 Sodium Chloride 10 ml QSHIFT@,22 IV 06/01/24 22:00 Cancel Laboratory Results Laboratory Tests 05/31/24 05:36 06/01/24 05:32 Urinalysis Test 05/30/24 19:37 Urine Color Light-yellow (Yellow) Urine Clarity Turbid (Clear) H Urine pH 5.0 (5.0-9.0) Urine Specific [place] 1.019 (1.001-1.035) Urine Protein Trace (Negative) H Urine Ketones Negative (Negative) Urine Blood Trace /uL (Negative) H Urine Nitrite Negative (Negative) Urine Bilirubin Negative (Negative) Urine Urobilinogen Normal mg/dL (Negative) Urine Leukocyte Esterase 2+ /uL (Negative) Urine RBC 5 /hpf (0 - 4) Urine Microscopic WBC 52 /HPF (0-5) H Urine Squamous Epithelial Cells Few /hpf (<5) Urine Bacteria None seen /hpf (None Seen) Urine Mucus Few (None Seen) Urine Glucose 1+ mg/dL (Normal) H Microbiology Microbiology Date/Time Source Procedure Growth Status 05/30/24 19:37 Voided Urine Urine Culture - Preliminary Resulted 05/30/24 10:25 Blood Blood Culture - Preliminary NO GROWTH AFTER 48 HOURS OF INCUBATION. Resulted Labs and/or images reviewed: Labs reviewed by me, Image(s) reviewed by me Assessment/Plan Assessment/Plan Sepsis secondary to left 2nd toe infection: Blood cultures negative, wound cultures pending Left 2nd toe infection and osteomyelitis: Zyvox 600 mg IV q.12h, Zosyn 3.375 g IV q.8 hours Status post incision and drainage, bone biopsy and flexor tenotomy left foot by passenger service manager Dr. Funes on 06/01/24 , bone biopsy report pending Uncontrolled diabetes: Insulin sliding scale Hypertension Hypercholesterolemia History of right 2nd toe amputation Time spent 35 minute PICC line ordered for IV antibiotics for six weeks Patient is willing to go to snf facility Plan discussed with: Patient My Orders Orders - DOMINGA SCHULTE MD Procedure Category Date Status Time * Picc Line Consult CONS 06/01/24 Transmitted 08:34 Consistent DIET 06/01/24 Transmitted Carb([facility])Diabetes Lunch Us Guided Vascular US 06/01/24 Logged Access 16:20 Date of Service: Jun 02, 2024 Billing Provider: DOMINGA SCHULTE MD Common Visit Codes: [id number] INP/OBS CARE(HIGH) DOMINGA SCHULTE MD Jun 02, 2024 08:01
[2024-06-02] MEDS: LINEZOLID 600MG/300ML 300 ML IV SCH (11:34)
[2024-06-02 20:41] LABS: COVID19 ANTIGEN SOFIA FIA NEGATIVE (NEGATIVE)
[2024-06-03 01:57] VITALS: BP 112/61; PULSE 70; RESP 20; TEMP 97.4; O2SAT 92
[2024-06-03 05:00] VITALS: BP 127/68; PULSE 68; RESP 19; TEMP 97.4; O2SAT 96
[2024-06-03 09:00] VITALS: BP 131/68; PULSE 70; RESP 20; TEMP 98.6; O2SAT 96
--- NOTE | 2024-06-03 09:23 | DVHPN2 ---
Reviewed: Care Plan, H&P, Labs, Medications, Previous Orders, Radiology Changes from previous H/P or p: No Changes Eyes: No Pain, No Vision change, No Conjunctivae inflammation, No Eyelid inflammation, No Other, No Redness ENT: No Ear pain, No Ear discharge, No Nose pain, No Nose discharge, No Nose congestion, No Mouth pain, No Mouth swelling, No Throat pain, No Throat swelling, No Other Cardiovascular: No Chest Pain, No Palpitations, No Orthopnea, No Paroxysmal Noc. Dyspnea, No Edema, No Lt Headedness, No Other Respiratory: No Cough, No Dry, No Shortness of breath, No SOB with excertion, No Wheezing, No Hemoptysis, No Pleuritic Pain, No Sputum, No Other Gastrointestinal: No Nausea, No Vomiting, No Abdominal Pain, No Diarrhea, No Constipation, No Melena, No Hematochezia, No Other Genitourinary: No Dysuria, No Frequency, No Incontinence, No Hematuria, No Retention, No Other Musculoskeletal: foot pain Skin: Other (Open wound left 2nd toe) Objective Vitals Vital Signs Date Time Temp Pulse Resp B/P (MAP) Pulse Ox O2 Delivery O2 Flow Rate FiO2 06/03/24 05:00 97.4 68 19 127/68 (87) 96 97.4 06/02/24 20:00 Room Air* 0 21 Intake/Output Intake and Output 06/03/24 07:00 Intake Total 2640 ml Output Total 1700 ml Balance 940 ml Intake Oral 1840 ml IV Total 800 ml Output Urine Total 1700 ml # Voids 3 Medications Current Medications Medications Dose Ordered Sig/Joel Route Start Time Stop Time Status Last Admin Dose Admin Piperacillin Sod/ Tazobactam Sod 100 ml @ 25 mls/hr Q8HR IV 05/30/24 14:00 06/03/24 06:48 25 MLS/HR Diagnostic Test (Pha) 1 strip ACHS 05/30/24 17:00 06/03/24 06:08 1 STRIP Insulin Human Regular ACHS SC 05/30/24 17:00 06/03/24 06:09 3 UNITS Dextrose 50 ml UD PRN IV 05/30/24 12:45 Acetaminophen/ Hydrocodone Bitart 1 tab Q4HP PRN PO 05/30/24 12:45 Ondansetron HCl 4 mg Q4HP PRN IV 05/30/24 12:45 Acetaminophen 650 mg Q6HP PRN PO 05/30/24 12:45 Atorvastatin Calcium 20 mg DAILY PO 05/31/24 10:00 06/02/24 11:35 20 MG Patient Own Medication 1 cap DAILY PO 05/31/24 10:00 Hold Patient Own Medication 1 tab DAILY PO 05/31/24 10:00 Patient Own Medication 40 mg DAILY PO 05/31/24 10:00 UNV Lisinopril 40 mg DAILY PO 05/31/24 10:00 06/02/24 11:36 40 MG Linezolid 300 ml @ 150 mls/hr Q12HR IV 06/02/24 10:00 06/02/24 20:57 150 MLS/HR Sodium Chloride 10 ml QSHIFT@ IV 06/01/24 22:00 Cancel Laboratory Results Laboratory Tests 05/31/24 05:36 06/01/24 05:32 Urinalysis Test 05/30/24 19:37 Urine Color Light-yellow (Yellow) Urine Clarity Turbid (Clear) H Urine pH 5.0 (5.0-9.0) Urine Specific [place] 1.019 (1.001-1.035) Urine Protein Trace (Negative) H Urine Ketones Negative (Negative) Urine Blood Trace /uL (Negative) H Urine Nitrite Negative (Negative) Urine Bilirubin Negative (Negative) Urine Urobilinogen Normal mg/dL (Negative) Urine Leukocyte Esterase 2+ /uL (Negative) Urine RBC 5 /hpf (0 - 4) Urine Microscopic WBC 52 /HPF (0-5) H Urine Squamous Epithelial Cells Few /hpf (<5) Urine Bacteria None seen /hpf (None Seen) Urine Mucus Few (None Seen) Urine Glucose 1+ mg/dL (Normal) H Microbiology Microbiology Date/Time Source Procedure Growth Status 06/01/24 11:46 Foot Left Gram Stain Pending Resulted 06/01/24 11:46 Foot Left Anaerobic Culture - Preliminary Resulted 06/01/24 11:46 Foot Left Aerobic Culture - Preliminary Resulted 05/30/24 19:37 Voided Urine Urine Culture - Final Complete 05/30/24 10:25 Blood Blood Culture - Preliminary NO GROWTH AFTER 72 HOURS OF INCUBATION. Resulted Labs and/or images reviewed: Labs reviewed by me, Image(s) reviewed by me Assessment/Plan Assessment/Plan Sepsis secondary to left 2nd toe infection: Blood cultures negative, wound cultures pending Left 2nd toe infection and osteomyelitis: Zyvox 600 mg IV q.12h, Zosyn 3.375 g IV q.8 hours Status post incision and drainage, bone biopsy and flexor tenotomy left foot by cutting machine tender helper Dr. Funes on 06/01/24 , bone biopsy report pending Uncontrolled diabetes: Insulin sliding scale Hypertension Hypercholesterolemia History of right 2nd toe amputation Time spent 35 minute PICC line ordered for IV antibiotics for six weeks Patient awaiting bed at shelter facility Plan discussed with: Patient My Orders Orders - DOMINGA SCHULTE MD Procedure Category Date Status Time * Video Surveillance Technician CONS 06/02/24 Transmitted Consult 09:29 * Video Surveillance Technician CONS 06/02/24 Transmitted Consult Discharge DISCHARGE 06/02/24 Transmitted 09:36 Date of Service: Jun 03, 2024 Billing Provider: DOMINGA SCHULTE MD Common Visit Codes: [id number] INP/OBS CARE(HIGH) DOMINGA SCHULTE MD Jun 03, 2024 09:23
--- NOTE | 2024-06-03 09:27 | DVHDS2 ---
Discharge Summary Date of Admission May 30, 2024 at 12:39 Date of Discharge: Jun 02, 2024 Admitting Diagnosis Left foot cellulitis Wounds: Incision and drainage of the left foot infection Labs/Diagnostic Data: Laboratory Results Test 06/03/24 05:19 06/02/24 19:45 06/01/24 05:32 06/01/24 02:58 POC Glucose 195 mg/dl (70-106) SARS-CoV-2 Antigen (Rapid) Negative (NEGATIVE) Prothrombin Time 11.2 sec (9.3-11.8) Prothrombin Time INR 1.06 (0.9-1.15) Activated Partial Thromboplast Time 31.7 SEC (24.5-34.5) Sodium Level 141 mmol/L (136-145) Potassium Level 3.6 mmol/L (3.5-5.1) Chloride Level 109 mmol/L (98-107) Carbon Dioxide Level 23 mmol/L (20-31) Anion Gap 9 (5-15) Blood Urea Nitrogen 27 mg/dL (9-23) Creatinine 1.59 mg/dL (0.550-1.02) Glomerular Filtration Rate Calc 37 mL/min (>90) BUN/Creatinine Ratio 17.0 (10.0-20.0) Serum Glucose 194 mg/dL (74-106) Calcium Level 10.1 mg/dL (8.7-10.4) Vancomycin Level Trough 28.1 ug/mL (5-10) Test 05/31/24 05:36 05/30/24 19:37 05/30/24 10:25 White Blood Count 10.8 10^3/uL (4.4-10.8) Red Blood Count 5.29 10^6/uL (4.0-5.20) Hemoglobin 15.5 g/dL (12.2-16.2) Hematocrit 46.8 % (36.0-46.0) Mean Corpuscular Volume 88.4 fL (80.0-100.0) Mean Corpuscular Hemoglobin 29.4 pg (28.0-32.0) Mean Corpuscular Hemoglobin Concent 33.2 g/dL (32.0-36.0) Red Cell Distribution Width 13.5 % (11.8-14.3) Platelet Count 233 10^3/uL (140-450) Mean Platelet Volume 8.8 fL (6.9-10.8) Neutrophils (%) (Auto) 77.8 % (37.0-80.0) Lymphocytes (%) (Auto) 10.5 % (10.0-50.0) Monocytes (%) (Auto) 9.2 % (0.0-12.0) Eosinophils (%) (Auto) 2.1 % (0.0-7.0) Basophils (%) (Auto) 0.4 % (0.0-2.0) Neutrophils # (Auto) 8.4 10 ^3/uL (1.6-8.6) Lymphocytes # (Auto) 1.1 10 ^3/uL (0.4-5.4) Monocytes # (Auto) 1.0 10 ^3/uL (0-1.3) Eosinophils # (Auto) 0.2 10 ^3/uL (0-0.8) Basophils # (Auto) 0 10 ^3/uL (0-0.2) Nucleated Red Blood Cells 0.0 % Total Bilirubin 1.7 mg/dL (0.2-1.0) Aspartate Amino Transferase (AST) 13 U/L (13-40) Alanine Aminotransferase (ALT) 14 U/L (7-40) Alkaline Phosphatase 87 U/L (46-116) Total Protein 7.0 g/dL (5.7-8.2) Albumin 4.2 g/dL (3.2-4.8) Urine Color Light-yellow (Yellow) Urine Clarity Turbid (Clear) Urine pH 5.0 (5.0-9.0) Urine Specific [place] 1.019 (1.001-1.035) Urine Protein Trace (Negative) Urine Ketones Negative (Negative) Urine Blood Trace /uL (Negative) Urine Nitrite Negative (Negative) Urine Bilirubin Negative (Negative) Urine Urobilinogen Normal mg/dL (Negative) Urine Leukocyte Esterase 2+ /uL (Negative) Urine RBC 5 /hpf (0 - 4) Urine Microscopic WBC 52 /HPF (0-5) Urine Squamous Epithelial Cells Few /hpf (<5) Urine Bacteria None seen /hpf (None Seen) Urine Mucus Few (None Seen) Urine Glucose 1+ mg/dL (Normal) Erythrocyte Sedimentation Rate 13 mm/hr (0-20) Hemoglobin A1c 7.7 % A1C (<5.7) Lactic Acid Level 1.2 mmol/L (0.4-2.0) C-Reactive Protein High Sensitivity 5.29 mg/dL (<1.0) Other Laboratory Tests 06/01/24 05:32 05/31/24 05:36 Brief Hx & Hospital Course: 58-year-old female with a uncontrolled diabetes hypertension hypercholesterolemia history of right 2nd toe amputation came in for infection of the left foot patient had left 2nd toe infection and osteomyelitis started on Zyvox 600 mg IV q.12h and Zosyn 3.375 g IV q.8 hours which she will [facility] underwent incision and drainage bone biopsy and flexor tenotomy left foot by podiatric Dr. Funes on 06/01/2024. Patient being discharged to [facility] facility for IV antibiotics for with the patient is agreeable Consults/Reason for consult [employer] Dr. Funes Operations or Procedures bone biopsy and flexor tenotomy left foot by bonderizer operator Dr. Funes on 06/01/24 , bone biopsy report pending Condition at Discharge: Fair Final Diagnosis/Problems List Sepsis secondary to left 2nd toe infection: Blood cultures negative, wound cultures pending Left 2nd toe infection and osteomyelitis: Zyvox 600 mg IV q.12h, Zosyn 3.375 g IV q.8 hours Status post incision and drainage, bone biopsy and flexor tenotomy left foot by bonderizer operator Dr. Funes on 06/01/24 , bone biopsy report pending Uncontrolled diabetes: Insulin sliding scale Hypertension Hypercholesterolemia History of right 2nd toe amputation Discharge Disposition: [facility] Discharge Instruct/Medications Diet: Consistent carbohydrate Activity: Light activity Follow Up/Referral[facility] Medications: Zosyn Zyvox Both for six weeks for osteomyelitis 39 (Time taken for discharge summary 39 minutes) Discharge Statement: "Patient was advised to return to the ER or call 911 if any headaches, dizziness, shortness of breath, chest pain, abdominal pain, bleeding, fevers, or worsening of medical condition. Patient was counseled about treatment plan, medications, possible side effects, patientverbalized understanding. All questions were answered to the best of my ability. This discharge took greater then 30 minutes in planning, reviewing documentation, counseling the patient, and discussing with other team members." ASSESSMENT ASSESSMENT Hospital Course Improved Assessment Sepsis secondary to left 2nd toe infection: Blood cultures negative, wound cultures pending Left 2nd toe infection and osteomyelitis: Zyvox 600 mg IV q.12h, Zosyn 3.375 g IV q.8 hours Status post incision and drainage, bone biopsy and flexor tenotomy left foot by bonderizer operator Dr. Funes on 06/01/24 , bone biopsy report pending Uncontrolled diabetes: Insulin sliding scale Hypertension Hypercholesterolemia History of right 2nd toe amputation Date of Service: Jun 03, 2024 Billing Provider: DOMINGA SCHULTE MD Common Visit Codes: [id number] DISCH DAY >30min DOMINGA SCUHLTE MD Jun 03, 2024 09:27
[2024-06-03 13:00] VITALS: BP 134/33; PULSE 79; RESP 20; TEMP 98.2; O2SAT 97
[2024-06-03 17:00] VITALS: BP 119/72; PULSE 85; RESP 20; TEMP 98.6; O2SAT 95
[2024-06-03 21:00] VITALS: BP 121/84; PULSE 77; RESP 18; TEMP 98.3; O2SAT 99
[2024-06-04] VITALS (7 sets, daily range): BP systolic 103–152; BP diastolic 54–87; PULSE 61–95; RESP 15–18; TEMP 97.4–98.5; O2SAT 93–96
[2024-06-04 03:13] LABS: Urine Bacteria None Seen /hpf (None Seen)
[2024-06-04 03:40] LABS: Urine Blood Negative /uL (Negative); Urine Clarity Clear (Clear); Urine Color Colorless (Yellow); Urine Protein, UAD Negative (Negative); Urine Squamous Epithelial Cell FEW /hpf (<5); Urine Urobilinogen Normal (Negative); Urine WBC 9 /HPF (0-5)
[2024-06-04 06:09] LABS: Basophils # (auto) 0.1 10 ^3/uL (0-0.2); Basophils % (auto) 0.6 % (0.0-2.0); Eosinophils # (auto) 0.3 10 ^3/uL (0-0.8); Eosinophils % (auto) 2.3 % (0.0-7.0); Hematocrit 42.2 % (36.0-46.0); Lymphocytes # (auto) 1.8 10 ^3/uL (0.4-5.4); Mean Corpuscular Hemoglobin 29.4 pg (28.0-32.0); Mean Corpuscular Hgb Conc. 33.2 g/dL (32.0-36.0); Mean Corpuscular Volume 88.6 fL (80.0-100.0); Monocytes % (auto) 8.1 % (0.0-12.0); Neutrophils # (auto) 8.9 10 ^3/uL (1.6-8.6); Nucleated Red Blood Cells % 0.2 %; Platelet Count (auto) 252 10^3/uL (140-450); Red Blood Cells 4.76 10^6/uL (4.0-5.20); Red Cell Distribution Width 13.6 % (11.8-14.3); White Blood Cell 12.1 10^3/uL (4.4-10.8)
--- NOTE | 2024-06-04 10:24 | DVHPN2 ---
Reviewed: Care Plan, H&P, Labs, Medications, Previous Orders, Radiology Changes from previous H/P or p: No Changes Eyes: No Pain, No Vision change, No Conjunctivae inflammation, No Eyelid inflammation, No Other, No Redness ENT: No Ear pain, No Ear discharge, No Nose pain, No Nose discharge, No Nose congestion, No Mouth pain, No Mouth swelling, No Throat pain, No Throat swelling, No Other Cardiovascular: No Chest Pain, No Palpitations, No Orthopnea, No Paroxysmal Noc. Dyspnea, No Edema, No Lt Headedness, No Other Respiratory: No Cough, No Dry, No Shortness of breath, No SOB with excertion, No Wheezing, No Hemoptysis, No Pleuritic Pain, No Sputum, No Other Gastrointestinal: No Nausea, No Vomiting, No Abdominal Pain, No Diarrhea, No Constipation, No Melena, No Hematochezia, No Other Genitourinary: No Dysuria, No Frequency, No Incontinence, No Hematuria, No Retention, No Other Musculoskeletal: foot pain Skin: Other (Open wound left 2nd toe) Objective Vitals Vital Signs Date Time Temp Pulse Resp B/P (MAP) Pulse Ox O2 Delivery O2 Flow Rate FiO2 06/04/24 10:00 103/67 06/04/24 08:53 97.7 74 15 96 97.7 06/03/24 20:00 Room Air* 0 21 Intake/Output Intake and Output 06/04/24 07:00 Intake Total 2029 ml Output Total 1100 ml Balance 929 ml Intake Oral 1137 ml IV Total 892 ml Output Urine Total 1100 ml # Voids 3 # Bowel Movements 1 Medications Current Medications Medications Dose Ordered Sig/Joel Route Start Time Stop Time Status Last Admin Dose Admin Piperacillin Sod/ Tazobactam Sod 100 ml @ 25 mls/hr Q8HR IV 05/30/24 14:00 06/04/24 06:42 25 MLS/HR Diagnostic Test (Pha) 1 strip ACHS 05/30/24 17:00 06/04/24 06:21 1 STRIP Insulin Human Regular ACHS SC 05/30/24 17:00 06/04/24 06:24 3 UNITS Dextrose 50 ml UD PRN IV 05/30/24 12:45 Acetaminophen/ Hydrocodone Bitart 1 tab Q4HP PRN PO 05/30/24 12:45 Ondansetron HCl 4 mg Q4HP PRN IV 05/30/24 12:45 Acetaminophen 650 mg Q6HP PRN PO 05/30/24 12:45 Atorvastatin Calcium 20 mg DAILY PO 05/31/24 10:00 06/03/24 10:18 20 MG Patient Own Medication 1 cap DAILY PO 05/31/24 10:00 Hold Patient Own Medication 1 tab DAILY PO 05/31/24 10:00 Patient Own Medication 40 mg DAILY PO 05/31/24 10:00 UNV Lisinopril 40 mg DAILY PO 05/31/24 10:00 06/03/24 10:19 40 MG Linezolid 300 ml @ 150 mls/hr Q12HR IV 06/02/24 10:00 06/04/24 10:08 150 MLS/HR Sodium Chloride 10 ml QSHIFT@ IV 06/01/24 22:00 Cancel Laboratory Results Laboratory Tests 06/01/24 05:32 06/04/24 05:50 Urinalysis Test 05/30/24 19:37 06/04/24 03:10 Urine Mucus Few (None Seen) Urine Color Colorless (Yellow) Urine Clarity Clear (Clear) Urine pH 5.0 (5.0-9.0) Urine Specific [place] 1.010 (1.001-1.035) Urine Protein Negative (Negative) Urine Ketones Negative (Negative) Urine Blood Negative /uL (Negative) Urine Nitrite Negative (Negative) Urine Bilirubin Negative (Negative) Urine Urobilinogen Normal mg/dL (Negative) Urine Leukocyte Esterase 1+ /uL (Negative) Urine RBC 1 /hpf (0 - 4) Urine Microscopic WBC 9 /HPF (0-5) H Urine Squamous Epithelial Cells Few /hpf (<5) Urine Bacteria None seen /hpf (None Seen) Urine Glucose Normal mg/dL (Normal) Microbiology Microbiology Date/Time Source Procedure Growth Status 06/01/24 11:46 Foot Left Gram Stain Pending Resulted 06/01/24 11:46 Foot Left Anaerobic Culture - Preliminary Resulted 06/01/24 11:46 Foot Left Aerobic Culture - Preliminary Resulted 05/30/24 19:37 Voided Urine Urine Culture - Final Complete 05/30/24 10:25 Blood Blood Culture - Preliminary NO GROWTH AFTER 72 HOURS OF INCUBATION. Resulted Assessment/Plan Assessment/Plan Sepsis secondary to left 2nd toe infection: Blood cultures negative, wound cultures pending Left 2nd toe infection and osteomyelitis: Zyvox 600 mg IV q.12h, Zosyn 3.375 g IV q.8 hours Status post incision and drainage, bone biopsy and flexor tenotomy left foot by director of quantitative research Dr. Funes on 06/01/24 , bone biopsy report pending Uncontrolled diabetes: Insulin sliding scale Hypertension Hypercholesterolemia History of right 2nd toe amputation Time spent 35 minute PICC line ordered for IV antibiotics for six weeks Patient getting closure of the wound by Dr. Funes today PICC line nurse could not place a PICC line and we will request Radiology to place the PICC line Plan discussed with: Patient Date of Service: Jun 04, 2024 Billing Provider: DOMINGA SCHULTE MD Common Visit Codes: [id number] INP/OBS CARE(HIGH) DOMINGA SCHULTE MD Jun 04, 2024 10:24
[2024-06-04] MEDS ORDERED: BUPIVACAINE HCL 50 ML ONE (11:04)
[2024-06-04] MEDS ORDERED: PROPOFOL 10 MG/ML 20 ML IV ONE ×2 (11:06→11:24)
[2024-06-04] MEDS ORDERED: GLYCOPYRROLATE 0.2 MG/ML 1ML VIAL ONE (11:06)
[2024-06-04] MEDS ORDERED: KETAMINE 50mg/ML 1ml syringe ONE (11:07)
[2024-06-04] MEDS ORDERED: ONDANSETRON HCL 4 MG/2 ML VIAL ONE (11:07)
[2024-06-04] MEDS ORDERED: KETOROLAC TROMETH 30 MG/ML 1ML VIAL ONE (11:07)
[2024-06-04] MEDS ORDERED: LIDOCAINE 1% INJ PF 5ML AMP ONE (11:07)
[2024-06-04] MEDS ORDERED: DexAMETHasone SOD PHOS 10MG/1ML VIAL INJ ONE (11:07)
[2024-06-04] MEDS ORDERED: VANCOMYCIN HCL 1000 MG VL ONE (11:21)
--- NOTE | 2024-06-04 11:28 | DVHPN2 ---
Jefferson Soniya Marshall is a 58-year-old female with past medical history of hypertension, hyperlipidemia, diabetes, and amputation of 2nd right toe in 2021 who presents to the ED with left 2nd toe open wound. Patient reports that this has been going on for several months and has an appointment with Podiatry in June 2024. Patient reports that she has a caregiver help her with her ADLs. Patient denies any recent sick contacts or recent injury or trauma, denies chest pain, shortness of breath, abdominal pain, nausea, vomiting, diarrhea, weakness, lightheadedness, and paresthesia. Reviewed: Care Plan, H&P, Labs, Medications, Previous Orders, Radiology Changes from previous H/P or p: No Changes Eyes: No Pain, No Vision change, No Conjunctivae inflammation, No Eyelid inflammation, No Other, No Redness ENT: No Ear pain, No Ear discharge, No Nose pain, No Nose discharge, No Nose congestion, No Mouth pain, No Mouth swelling, No Throat pain, No Throat swelling, No Other Cardiovascular: No Chest Pain, No Palpitations, No Orthopnea, No Paroxysmal Noc. Dyspnea, No Edema, No Lt Headedness, No Other Respiratory: No Cough, No Dry, No Shortness of breath, No SOB with excertion, No Wheezing, No Hemoptysis, No Pleuritic Pain, No Sputum, No Other Gastrointestinal: No Nausea, No Vomiting, No Abdominal Pain, No Diarrhea, No Constipation, No Melena, No Hematochezia, No Other Genitourinary: No Dysuria, No Frequency, No Incontinence, No Hematuria, No Retention, No Other Musculoskeletal: foot pain Skin: Other (Open wound left 2nd toe) Objective Vitals Vital Signs Date Time Temp Pulse Resp B/P (MAP) Pulse Ox O2 Delivery O2 Flow Rate FiO2 06/04/24 10:00 103/67 06/04/24 08:53 97.7 74 15 96 97.7 06/03/24 20:00 Room Air* 0 21 Intake/Output Intake and Output 06/04/24 07:00 Intake Total 2029 ml Output Total 1100 ml Balance 929 ml Intake Oral 1137 ml IV Total 892 ml Output Urine Total 1100 ml # Voids 3 # Bowel Movements 1 Exam DERMATOLOGIC EXAM: - Skin is dry and cool to the touch dry bilaterally. - Nails 1-5 of the bilateral foot are thickened, discolored, dystrophic, and tender to palpate with subungual debris - Hair loss noted to bilateral feet Wound #1: Location: Left 2nd toe Measurements: Length 1 cm x width 0.5 cm x depth 0.5 cm. Wound margins: Hyperkeratotic. Wound base: Full thickness. General Appearance: Healthy and bleeding. Probes to Bone: yes Purulent drainage: yes Serous drainage: No Erythema: Periwound VASCULAR EXAM: - DP and PT pulses are palpable bilaterally. - CONTROL ROOM TECHNICIAN is brisk to all digits. - Feet are cool to touch compared to lower legs bilaterally. NEUROLOGIC EXAM: - Normal light touch sensation to the superficial peroneal, deep peroneal, sural, saphenous, and tibial nerve branches. - Protective sensation is diminished as tested with a 5.07 10g [place] bilaterally. MUSCULOSKELETAL EXAM: - No gross deformities - Muscle strength is 5/5 and active motion is pain-free and symmetrical bilaterally - No pain or crepitation with passive range of motion bilaterally to all major pedal joints Medications Current Medications Medications Dose Ordered Sig/Joel Route Start Time Stop Time Status Last Admin Dose Admin Piperacillin Sod/ Tazobactam Sod 100 ml @ 25 mls/hr Q8HR IV 05/30/24 14:00 06/04/24 06:42 25 MLS/HR Diagnostic Test (Pha) 1 strip ACHS 05/30/24 17:00 06/04/24 06:21 1 STRIP Insulin Human Regular ACHS SC 05/30/24 17:00 06/04/24 06:24 3 UNITS Dextrose 50 ml UD PRN IV 05/30/24 12:45 Acetaminophen/ Hydrocodone Bitart 1 tab Q4HP PRN PO 05/30/24 12:45 Ondansetron HCl 4 mg Q4HP PRN IV 05/30/24 12:45 Acetaminophen 650 mg Q6HP PRN PO 05/30/24 12:45 Atorvastatin Calcium 20 mg DAILY PO 05/31/24 10:00 06/03/24 10:18 20 MG Patient Own Medication 1 cap DAILY PO 05/31/24 10:00 Hold Patient Own Medication 1 tab DAILY PO 05/31/24 10:00 Patient Own Medication 40 mg DAILY PO 05/31/24 10:00 UNV Lisinopril 40 mg DAILY PO 05/31/24 10:00 06/03/24 10:19 40 MG Linezolid 300 ml @ 150 mls/hr Q12HR IV 06/02/24 10:00 06/04/24 10:08 150 MLS/HR Sodium Chloride 10 ml QSHIFT@10,22 IV 06/01/24 22:00 Cancel Laboratory Results Laboratory Tests 06/01/24 05:32 06/04/24 05:50 Urinalysis Test 05/30/24 19:37 06/04/24 03:10 Urine Mucus Few (None Seen) Urine Color Colorless (Yellow) Urine Clarity Clear (Clear) Urine pH 5.0 (5.0-9.0) Urine Specific [place] 1.010 (1.001-1.035) Urine Protein Negative (Negative) Urine Ketones Negative (Negative) Urine Blood Negative /uL (Negative) Urine Nitrite Negative (Negative) Urine Bilirubin Negative (Negative) Urine Urobilinogen Normal mg/dL (Negative) Urine Leukocyte Esterase 1+ /uL (Negative) Urine RBC 1 /hpf (0 - 4) Urine Microscopic WBC 9 /HPF (0-5) H Urine Squamous Epithelial Cells Few /hpf (<5) Urine Bacteria None seen /hpf (None Seen) Urine Glucose Normal mg/dL (Normal) Microbiology Microbiology Date/Time Source Procedure Growth Status 06/01/24 11:46 Foot Left Gram Stain Pending Resulted 06/01/24 11:46 Foot Left Anaerobic Culture - Preliminary Resulted 06/01/24 11:46 Foot Left Aerobic Culture - Preliminary Resulted 05/30/24 19:37 Voided Urine Urine Culture - Final Complete 05/30/24 10:25 Blood Blood Culture - Final NO GROWTH AFTER 5 DAYS OF INCUBATION. Complete Assessment/Plan Assessment/Plan ASSESSMENT: Patient is a year old seen on the floor for a worsening ulcer PLAN: - The patients chart was reviewed, clinical findings were discussed with the patient, the etiologies of the conditions were discussed in detail, and a treatment plan was agreed to at this time, with both oral and written instructions provided. - reviewed advanced imaging - discussed plan is to perform an incision and drainage - patient will be NPO at midnight - take her to the OR today for closure - can weightbear as tolerated in postoperative shoe All questions were answered and concerns addressed to the patient's satisfaction. The patient was given the phone number to the clinic and was told how to make contact with the clinic should any concerns or questions arise. Patient understands that if any questions or concerns arise prior to the next appointment, we should be contacted immediately. FOLLOW-UP: Continue to follow while inpatient Plan discussed with: Patient Problem List: (1) Cellulitis of foot (2) Hyperglycemia (3) Leukocytosis (4) Foot osteomyelitis, right (5) Cellulitis of right leg (6) Encounter for care related to Port-a-Cath (7) On antibiotic therapy (8) Acute chest pain (9) acute dehydration (10) acute thrombocytopenia (11) cannot rule out acute coronary syndrome Date of Service: Jun 04, 2024 Billing Provider: MONTANA MORALES DPM Common Visit Codes: [id number] INP/OBS CARE(MOD) MONTANA MORALES DPM Jun 04, 2024 11:28
--- NOTE | 2024-06-04 11:31 | DVHOP2 ---
Operative Report - 2 Report Details Date: 06/04/24 Preop Diagnosis: 1. Left foot osteomyelitis 2. Left foot cellulitis 3. Left foot abscess 4. Left foot hammertoe Postop Diagnosis: Sepsis secondary to left 2nd toe infection: Blood cultures negative, wound cultures pending Left 2nd toe infection and osteomyelitis: Zyvox 600 mg IV q.12h, Zosyn 3.375 g IV q.8 hours Status post incision and drainage, bone biopsy and flexor tenotomy left foot by director of sports performance Dr. Morales on 06/01/24 , bone biopsy report pending Uncontrolled diabetes: Insulin sliding scale Hypertension Hypercholesterolemia History of right 2nd toe amputation Surgeon: Montana Morales MD Anesthesiologist: See anesthesia Anesthesia: Mac Consent: The patient was informed of the risks and benefits of the procedure. These include but are not limited to complications of anesthesia, postoperative infection, incomplete relief of symptoms, recurrence of symptoms, damage to blood vessels, nerves and tendons, deep venous thrombosis, pulmonary embolism and possible need for repeat surgery in the future. Complications: None Estimated Blood Loss: Minimal Fluids: See anesthesia Findings: Consistent with diagnosis Indications for Surgery: Worsening left foot Name of Procedure Performed 1. Left foot I&D to bone (78840) 2. Left foot delayed closure (33411) Procedure Details Procedure Details: PRE-PROCEDURE INFORMATION: In the pre-op holding area, the extremity to be operated on was clearly marked and the patient verified correct laterality of the marking. The patient was transferred to the OR table and placed in a supine position. A timeout was performed in which identification of the correct patient, procedure, location, and materials was done. The left foot and leg were prepped and draped in normal sterile fashion. DESCRIPTION OF PROCEDURE: Attention was directed to the left foot where area of fluctuance was noted. An incision was made over this area and was deepened through blunt dissection. The incision was deepened to the level of abscess and bone. Care was taken to the dissection to avoid any neurovascular and tendinous structures. The incision was deepened to the bone, and the abscess appeared to be purulent fluid consistent with pus. The cortices of the bone was then removed with Doroteo an all necrotic tissue. After the abscess was drained, the area was irrigated with 3 L normal saline using cysto tubing. A delayed closure was then performed using 2-0 nylon after was deemed appropriate with no longer concern for infection. POSTOPERATIVE INFORMATION: The patient tolerated the above noted procedure and anesthesia well and was transferred to the PACU with vital signs stable, and vascular status intact with capillary refill intact to all digits. Patient can be discharged with IV antibiotics. Patient can weightbear as tolerated in a postoperative shoe Specimen: Left 2nd toe proximal phalanx Condition Fair Disposition [facility] Facility MONTANA MORALES DPM Jun 04, 2024 11:31
--- NOTE | 2024-06-04 15:35 | ECG ---
[facility] Test Date: 2024-06-03 Test Time: 22:01:55 Pat Name: ROSS TRIANA Department: Respiratoy Room: 0215 A Gender: F Healthcare Manager: [id number] : 1965 Requested By: MONTANA MORALES Order Number: [id number] Reading MD: Andre Colbert Measurements Intervals [place] Rate: 71 P: 14 VT: 155 QRS: -36 QRSD: 165 T: -9 QT: 429 QTc: 467 Interpretive Statements Sinus rhythm Right bundle branch block Electronically Signed On 06-06-2024 10:06:54 PST by Andre Colbert Please click the below link to view image of tracing.
[2024-06-05] VITALS (9 sets, daily range): BP systolic 96–156; BP diastolic 61–87; PULSE 59–85; RESP 12–20; TEMP 97.6–98.6; O2SAT 93–98
--- NOTE | 2024-06-05 08:46 | DVHPN2 ---
Reviewed: Care Plan, H&P, Labs, Medications, Previous Orders, Radiology Changes from previous H/P or p: No Changes Eyes: No Pain, No Vision change, No Conjunctivae inflammation, No Eyelid inflammation, No Other, No Redness ENT: No Ear pain, No Ear discharge, No Nose pain, No Nose discharge, No Nose congestion, No Mouth pain, No Mouth swelling, No Throat pain, No Throat swelling, No Other Cardiovascular: No Chest Pain, No Palpitations, No Orthopnea, No Paroxysmal Noc. Dyspnea, No Edema, No Lt Headedness, No Other Respiratory: No Cough, No Dry, No Shortness of breath, No SOB with excertion, No Wheezing, No Hemoptysis, No Pleuritic Pain, No Sputum, No Other Gastrointestinal: No Nausea, No Vomiting, No Abdominal Pain, No Diarrhea, No Constipation, No Melena, No Hematochezia, No Other Genitourinary: No Dysuria, No Frequency, No Incontinence, No Hematuria, No Retention, No Other Musculoskeletal: foot pain Skin: Other (Open wound left 2nd toe) Objective Vitals Vital Signs Date Time Temp Pulse Resp B/P (MAP) Pulse Ox O2 Delivery O2 Flow Rate FiO2 06/05/24 08:00 Room Air* 0 21 06/05/24 05:00 98.6 64 18 127/69 (88) 98 98.6 Intake/Output Intake and Output 06/05/24 07:00 Intake Total 1650 ml Balance 1650 ml Intake Oral 765 ml IV Total 885 ml # Voids 5 # Bowel Movements 2 Medications Current Medications Medications Dose Ordered Sig/Joel Route Start Time Stop Time Status Last Admin Dose Admin Piperacillin Sod/ Tazobactam Sod 100 ml @ 25 mls/hr Q8HR IV 05/30/24 14:00 06/05/24 06:20 25 MLS/HR Diagnostic Test (Pha) 1 strip ACHS 05/30/24 17:00 06/05/24 06:20 1 STRIP Insulin Human Regular ACHS SC 05/30/24 17:00 06/05/24 06:23 3 UNITS Dextrose 50 ml UD PRN IV 05/30/24 12:45 Acetaminophen/ Hydrocodone Bitart 1 tab Q4HP PRN PO 05/30/24 12:45 Ondansetron HCl 4 mg Q4HP PRN IV 05/30/24 12:45 Acetaminophen 650 mg Q6HP PRN PO 05/30/24 12:45 Atorvastatin Calcium 20 mg DAILY PO 05/31/24 10:00 06/03/24 10:18 20 MG Patient Own Medication 1 cap DAILY PO 05/31/24 10:00 Hold Patient Own Medication 1 tab DAILY PO 05/31/24 10:00 Patient Own Medication 40 mg DAILY PO 05/31/24 10:00 UNV Lisinopril 40 mg DAILY PO 05/31/24 10:00 06/03/24 10:19 40 MG Linezolid 300 ml @ 150 mls/hr Q12HR IV 06/02/24 10:00 06/04/24 22:19 150 MLS/HR Sodium Chloride 10 ml QSHIFT@ IV 06/01/24 22:00 Cancel Laboratory Results Laboratory Tests 06/01/24 05:32 06/04/24 05:50 Urinalysis Test 05/30/24 19:37 06/04/24 03:10 Urine Mucus Few (None Seen) Urine Color Colorless (Yellow) Urine Clarity Clear (Clear) Urine pH 5.0 (5.0-9.0) Urine Specific [place] 1.010 (1.001-1.035) Urine Protein Negative (Negative) Urine Ketones Negative (Negative) Urine Blood Negative /uL (Negative) Urine Nitrite Negative (Negative) Urine Bilirubin Negative (Negative) Urine Urobilinogen Normal mg/dL (Negative) Urine Leukocyte Esterase 1+ /uL (Negative) Urine RBC 1 /hpf (0 - 4) Urine Microscopic WBC 9 /HPF (0-5) H Urine Squamous Epithelial Cells Few /hpf (<5) Urine Bacteria None seen /hpf (None Seen) Urine Glucose Normal mg/dL (Normal) Microbiology Microbiology Date/Time Source Procedure Growth Status 06/01/24 11:46 Foot Left Gram Stain - Final Resulted 06/01/24 11:46 Foot Left Anaerobic Culture - Preliminary Resulted 06/01/24 11:46 Foot Left Aerobic Culture - Preliminary Resulted 05/30/24 19:37 Voided Urine Urine Culture - Final Complete 05/30/24 10:25 Blood Blood Culture - Final NO GROWTH AFTER 5 DAYS OF INCUBATION. Complete Labs and/or images reviewed: Labs reviewed by me, Image(s) reviewed by me Assessment/Plan Assessment/Plan Sepsis secondary to left 2nd toe infection: Blood cultures negative, wound cultures growing group B strep Left 2nd toe infection and osteomyelitis: Zyvox 600 mg IV q.12h, Zosyn 3.375 g IV q.8 hours Status post incision and drainage, bone biopsy and flexor tenotomy left foot by board operator Dr. Funes on 06/01/24 , bone biopsy report pending, status post delayed closure Uncontrolled diabetes: Insulin sliding scale Hypertension Hypercholesterolemia History of right 2nd toe amputation Time spent 35 minute Patient getting Port-A-Cath today by radiologist Plan discussed with: Patient My Orders Orders - DOMINGA SCHULTE MD Procedure Category Date Status Time * Radiologist Consult CONS 06/04/24 Transmitted 15:54 Date of Service: Jun 05, 2024 Billing Provider: DOMINGA SCHULTE MD Common Visit Codes: [id number] INP/OBS CARE(HIGH) DOMINGA SCHULTE MD Jun 05, 2024 08:46
[2024-06-05] MEDS: LIDOCAINE 2%HCL (LOCAL ANESTH.) INJ 20ML MDV ONE (14:39)
[2024-06-05] MEDS: fentaNYL CITRATE 100 MCG/2 ML VL ONE (14:39)
[2024-06-05] MEDS: MIDAZOLAM HCL 2MG/2ML 2ml VIAL (1mg/ml) ONE (14:39)
[2024-06-05] MEDS: HEPARIN SODIUM (PORCINE) 5000 UNITS/ML 1ML VIAL ONE (14:40)
--- NOTE | 2024-06-05 16:47 | DVH ---
XY Insertion of Venous Cath, HISTORY: POWER LINE INSERTION PROCEDURE: Informed consent was obtained. The patient was placed supine on the interventional table. A limited localization ultrasound of the right neck base was obtained. The right neck base and upper chest were prepped with chlorhexidine which was allowed to dry and draped in the usual sterile fashio n. Time out was performed. IV sedation was administered. The skin and the soft tissues were infiltrat ed with 1% Lidocaine . With real-time ultrasound guidance, the internal jugular vein was accessed wit h a micropuncture kit, and an image documenting patency was recorded to PACS. A subcutaneous tunneled tract was created from the right upper chest to the venotomy site. A 5 Burkinan dual lumen power line, 25 cm long hemodialysis catheter was advanced through the tunneled tract. Fluoroscopy was used to advance a guidewire through the internal jugular vein into the inferior vena cava. A 5 Burkinan peel-away sheath was introduced, though which was advanced the catheter into the rig ht atrium. The catheter tip position was confirmed with fluoroscopy. There was satisfactory flow in b oth lumens. The catheter lumens were flushed with saline and heparin was left indwelling in the dal[place] ter. A post-procedure image of the chest was obtained. The neck incision site was closed and dressed sterilely. The catheter was sutured at the skin surface and exit site also dressed sterilely. No imm ediate complication was identified. DAP 286 FLUOROSCOPY TIME: 1.5 minutes. SEDATION: Dr. Cammy Cowart was personally responsible for the administration of moderate sedation during the procedure performed, including the use of an independent trained observer who had no other duties during the procedure. The drugs utilized were IV fentanyl and versed (see nursing log for details). The total time of supervision by the attending physician was approximately 30 minutes. FINDINGS: Widely patent right IJV. Post procedure image demonstrates smooth course of the tunneled po werline catheter with the tip in the superior cavoatrial junction. IMPRESSION: Successful placement of 5 Burkinan dual lumen Power line, 25 cm long catheter through right internal j ugular vein. Plan: Please contact IR for removal when no longer needed.
[2024-06-06 01:00] VITALS: BP 128/67; PULSE 65; RESP 19; TEMP 97.7; O2SAT 97
[2024-06-06 05:00] VITALS: BP 121/67; PULSE 63; RESP 18; TEMP 97.5; O2SAT 97
--- NOTE | 2024-06-06 08:30 | DVHPN2 ---
Reviewed: Care Plan, H&P, Labs, Medications, Previous Orders, Radiology Changes from previous H/P or p: No Changes Eyes: No Pain, No Vision change, No Conjunctivae inflammation, No Eyelid inflammation, No Other, No Redness ENT: No Ear pain, No Ear discharge, No Nose pain, No Nose discharge, No Nose congestion, No Mouth pain, No Mouth swelling, No Throat pain, No Throat swelling, No Other Cardiovascular: No Chest Pain, No Palpitations, No Orthopnea, No Paroxysmal Noc. Dyspnea, No Edema, No Lt Headedness, No Other Respiratory: No Cough, No Dry, No Shortness of breath, No SOB with excertion, No Wheezing, No Hemoptysis, No Pleuritic Pain, No Sputum, No Other Gastrointestinal: No Nausea, No Vomiting, No Abdominal Pain, No Diarrhea, No Constipation, No Melena, No Hematochezia, No Other Genitourinary: No Dysuria, No Frequency, No Incontinence, No Hematuria, No Retention, No Other Musculoskeletal: foot pain Skin: Other (Open wound left 2nd toe) Objective Vitals Vital Signs Date Time Temp Pulse Resp B/P (MAP) Pulse Ox O2 Delivery O2 Flow Rate FiO2 06/06/24 07:48 Room Air* 0 21 06/06/24 05:00 97.5 63 18 121/67 (85) 97 97.5 Intake/Output Intake and Output 06/06/24 07:00 Intake Total 1770 ml Balance 1770 ml Intake Oral 970 ml IV Total 800 ml # Voids 6 # Bowel Movements 2 Medications Current Medications Medications Dose Ordered Sig/Joel Route Start Time Stop Time Status Last Admin Dose Admin Diagnostic Test (Pha) 1 strip ACHS 05/30/24 17:00 06/06/24 06:28 1 STRIP Insulin Human Regular ACHS SC 05/30/24 17:00 06/06/24 06:29 3 UNITS Dextrose 50 ml UD PRN IV 05/30/24 12:45 Acetaminophen/ Hydrocodone Bitart 1 tab Q4HP PRN PO 05/30/24 12:45 Ondansetron HCl 4 mg Q4HP PRN IV 05/30/24 12:45 Acetaminophen 650 mg Q6HP PRN PO 05/30/24 12:45 Atorvastatin Calcium 20 mg DAILY PO 05/31/24 10:00 06/03/24 10:18 20 MG Patient Own Medication 1 cap DAILY PO 05/31/24 10:00 Hold Patient Own Medication 1 tab DAILY PO 05/31/24 10:00 Patient Own Medication 40 mg DAILY PO 05/31/24 10:00 UNV Lisinopril 40 mg DAILY PO 05/31/24 10:00 06/03/24 10:19 40 MG Linezolid 300 ml @ 150 mls/hr Q12HR IV 06/02/24 10:00 06/05/24 21:58 150 MLS/HR Sodium Chloride 10 ml QSHIFT@10,22 IV 06/01/24 22:00 Cancel Cefazolin Sodium/ Dextrose 50 ml @ 50 mls/hr Q8HR IV 06/06/24 14:00 UNV Laboratory Results Laboratory Tests 06/01/24 05:32 06/04/24 05:50 Urinalysis Test 05/30/24 19:37 06/04/24 03:10 Urine Mucus Few (None Seen) Urine Color Colorless (Yellow) Urine Clarity Clear (Clear) Urine pH 5.0 (5.0-9.0) Urine Specific [place] 1.010 (1.001-1.035) Urine Protein Negative (Negative) Urine Ketones Negative (Negative) Urine Blood Negative /uL (Negative) Urine Nitrite Negative (Negative) Urine Bilirubin Negative (Negative) Urine Urobilinogen Normal mg/dL (Negative) Urine Leukocyte Esterase 1+ /uL (Negative) Urine RBC 1 /hpf (0 - 4) Urine Microscopic WBC 9 /HPF (0-5) H Urine Squamous Epithelial Cells Few /hpf (<5) Urine Bacteria None seen /hpf (None Seen) Urine Glucose Normal mg/dL (Normal) Microbiology Microbiology Date/Time Source Procedure Growth Status 06/01/24 11:46 Foot Left Gram Stain - Final Resulted 06/01/24 11:46 Anaerobic Culture - Final Peptostreptococcus prevottii Resulted 06/01/24 11:46 Foot Left Aerobic Culture - Preliminary Resulted 05/30/24 19:37 Voided Urine Urine Culture - Final Complete 05/30/24 10:25 Blood Blood Culture - Final NO GROWTH AFTER 5 DAYS OF INCUBATION. Complete Labs and/or images reviewed: Labs reviewed by me, Image(s) reviewed by me Assessment/Plan Assessment/Plan Sepsis secondary to left 2nd toe infection: Blood cultures negative, wound cultures growing group B strep Left 2nd toe infection and osteomyelitis: Wound cultures growing group B strep, continue Zyvox 600 mg IV q.12h, DC Zosyn, start Ancef 2 g IV q.12 hr Status post incision and drainage, bone biopsy and flexor tenotomy left foot by car rental manager Dr. Funes on 06/01/24 , bone biopsy report pending, status post delayed closure Uncontrolled diabetes: Insulin sliding scale Hypertension Hypercholesterolemia History of right 2nd toe amputation Time spent 35 minute Patient has Port-A-Cath inserted by radiologist Patient is ready to be discharged to [facility] Plan discussed with: Patient My Orders Orders - DOMINGA SCHULTE MD Procedure Category Date Status Time Insertion Of Venous XY 06/05/24 Resulted Cath 15:31 Cefazolin 2 PHA 06/06/24 Logged [id number] (Ancef) 14:00 * Cash Management Associate CONS 06/06/24 Transmitted Consult 08:24 * Cash Management Associate CONS 06/06/24 Transmitted Consult Date of Service: Jun 06, 2024 Billing Provider: DOMINGA SCHULTE MD Common Visit Codes: [id number] INP/OBS CARE(HIGH) DOMINGA SCHULTE MD Jun 06, 2024 08:30
[2024-06-06 08:49] VITALS: BP 137/86; PULSE 65; RESP 16; TEMP 97.5; O2SAT 97
[2024-06-06 13:00] VITALS: BP 147/87; PULSE 70; RESP 16; TEMP 97.9; O2SAT 96
[2024-06-06] MEDS: ceFAZolin 2 GM/D5W50ml 50 ML IV SCH (15:10)
== END 2024-06-06 16:45 | DRG 710 ==
LOC: ER 09:57 → OVERFLOW 12:39 → CENTRAL 23:21
PROVIDERS: ADMIT Family Medicine; ATTEND Family Medicine
PROC: 0LNW0ZZ Release Left Foot Tendon, Open Approach (ICD-10-PCS; 2024-06-01)
PROC: 0QBR0ZX Excision of Left Toe Phalanx, Open Approach, Diagnostic (ICD-10-PCS; 2024-06-01)
PROC: 0Y9N0ZZ Drainage of Left Foot, Open Approach (ICD-10-PCS; principal; 2024-06-01 11:33)
PROC: 0Y9N0ZZ Drainage of Left Foot, Open Approach (ICD-10-PCS; 2024-06-04)
PROC: 0JH63XZ Insertion of Tunneled Vascular Access Device into Chest Subcutaneous Tissue and Fascia, Percutaneous Approach (ICD-10-PCS; 2024-06-05)
PROC: 02HV33Z Insertion of Infusion Device into Superior Vena Cava, Percutaneous Approach (ICD-10-PCS; 2024-06-05)
PROC: B5181ZA Fluoroscopy of Superior Vena Cava using Low Osmolar Contrast, Guidance (ICD-10-PCS; 2024-06-05)
PROC: B548ZZA Ultrasonography of Superior Vena Cava, Guidance (ICD-10-PCS; 2024-06-05)
DX: A41.9 Sepsis, unspecified organism (principal); L03.115 Cellulitis of right lower limb; E11.69 Type 2 diabetes mellitus with other specified complication; M86.172 Other acute osteomyelitis, left ankle and foot; L02.612 Cutaneous abscess of left foot; E11.65 Type 2 diabetes mellitus with hyperglycemia; L03.116 Cellulitis of left lower limb; E86.0 Dehydration; L03.032 Cellulitis of left toe; I10 Essential (primary) hypertension; B95.1 Streptococcus, group B, as the cause of diseases classified elsewhere; E78.00 Pure hypercholesterolemia, unspecified; S91.105A Unspecified open wound of left lesser toe(s) without damage to nail, initial encounter; Z81.8 Family history of other mental and behavioral disorders; Z82.5 Family history of asthma and other chronic lower respiratory diseases; Z89.421 Acquired absence of other right toe(s); Z79.84 Long term (current) use of oral hypoglycemic drugs; Z79.899 Other long term (current) drug therapy; E66.01 Morbid (severe) obesity due to excess calories; Z68.42 Body mass index [BMI] 45.0-49.9, adult
CPT/HCPCS: 36415; 36558; 71045; 73700; 73718; 77001; 80048; 80053; 80202; 81001; 82962; 83036; 83605; 85025; 85610; 85652; 85730; 86141; 86850; 86900; 86901; 87040; 87070; 87075; 87076; 87077; 87086; 87186; 87205; 87426; 93005; 93971; 96365; 96367; 97110; 97116; 97163; 97530; 99152; C1894; G0378; J1100; J1815; J1885; J2250; J2405; J2543; J2704; J3490

== ENCOUNTER 2024-08-07 08:37 | Emergency (ER) | payer MEDICAID ==
[~2024-08-07] VITALS: Ht 157.5 cm; Wt 123.3 kg
[~2024-08-07 08:37] MED LIST changes: +ASPI-325
[2024-08-07 08:48] VITALS: BP 108/83; PULSE 65; RESP 17; TEMP 97.5; O2SAT 96
--- NOTE | 2024-08-07 09:05 | ED.PDOC ---
History of Present Illness HPI Comments 59 year old female presents to the ED with a chief complaint of PICC line removal onset today. Patient states she was sent by her MD for PICC line removal from RT upper chest. Patient finished 6 week course of antibiotics. Has no complaints. PMHx HTN, DM, HLD. Denies shortness of breath, diarrhea, nausea, vo miting, abdominal pain, shortness of breath, chest pain, fever, chills. No other symptoms or modifying factors present at this time. Chief Complaint: Tube Replacement Time Seen by MD: 08:57 Primary Care Provider: ta Reviewed Notes: Medications, Allergies Allergies: Coded Allergies: NO KNOWN ALLERGIES (Unverified , 08/06/13) Home Meds Active Scripts Clindamycin Hcl (Clindamycin Hcl) 300 Mg Cap, 1 CAP PO TID, #30 CAP Prov:RENAN SKINNER MD 02/26/22 Reported Medications Aspirin (Aspirin Low Dose) 81 Mg Tab, 1 DAILY 05/30/24 Ertugliflozin l-Pyroglutamic A (Steglatro) 5 Mg Tab, 1 TAB PO DAILY 02/23/22 Atorvastatin Calcium (ATORVASTATIN CALCIUM) 20 Mg Tab, 1 TAB PO DAILY 02/23/22 Duloxetine HCl (Duloxetine HCl) 60 Mg Cap, 1 CAP PO DAILY 02/23/22 Lisinopril (Lisinopril) 40 Mg Tab, 40 MG PO DAILY for 30 Days, MG 05/27/17 Metformin Hydrochloride (Metformin Hcl) 500 Mg Tab, 1 TAB PO DAILY, #60 TAB 3 Refills 05/27/17 Information Source: Patient Mode of Arrival: Ambulatory Severity: Moderate Timing: Hours Duration: Since onset Prehospital treatment: None Past Medical History PAST MEDICAL HISTORY: DM, High Lipids, HTN Surgical History: Denies all surgeries 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: No Pertinent 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 History Family History Family History: Reviewed,noncontributory to illness Family History (Other): Mom had dementia Social History Smoker: Non-Smoker Alcohol: Denies ETOH Use Drugs: Denies Drug Use Lives In: Home Constitutional: denies: chills, diaphoresis, fatigue, fever, malaise, sweats, weakness, others EENTM: denies: blurred vision, double vision, ear bleeding, ear discharge, ear drainage, ear pain, ear ringing, eye pain, eye redness, hearing loss, mouth pain, mouth swelling, nasal discharge, nose bleeding, nose congestion, nose pain, photophobia, tearing, throat pain, throat swelling, voice changes, others Respiratory: denies: cough, hemoptysis, orthopnea, SOB at rest, shortness of breath, SOB with excertion, stridor, wheezing, others Cardiovascular: denies: chest pain, dizzy spells, diaphoresis, Dyspnea on exertion, edema, irregular heart beat, left arm pain, lightheadedness, palpitations, PND, syncope, others Gastrointestinal: denies: abdomen distended, abdominal pain, blood streaked bowels, constipated, diarrhea, dysphagia, difficulty swallowing, hematemesis, melena, nausea, poor appetite, poor fluid intake, rectal bleeding, rectal pain, vomiting, others Genitourinary: denies: abnormal vagina bleeding, burning, dyspareunia, dysuria, flank pain, frequency, hematuria, incontinence, pain, , vagina discharge, urgency, others Neurological: denies: dizziness, fainting, headache, left sided numbness, left sided weakness, numbness, paresthesia, pre-existing deficit, right sided numbness, right sided weakness, seizure, speech problems, tingling, tremors, weakness, others Musculoskeletal: denies: back pain, gout, joint pain, joint swelling, muscle pain, muscle stiffness, neck pain, others Integumetry: denies: bruises, change in color, change in hair/nails, dryness, laceration, lesions, lumps, rash, wounds, others Allergic/Immunocompromised: denies: Difficulty Healing, Frequent Infections, Hives, Itching, others Hematologic/Lymphatic: denies: anemia, blood clots, easy bleeding, easy bruising, swollen glands, others Endocrine: denies: excessive hunger, excessive sweating, excessive thirst, excessive urination, flushing, intolerance to cold, intolerance to heat, unexplained weight gain, unexplained weight loss, others Psychiatric: denies: anxiety, bipolar disorder, depression, hopeless, panic disorder, schizophrenia, sleepless, suicidal, others All Other Systems: Reviewed and Negative Physical Exam General Appearance: No Apparent Distress, Normal HEENT: Normal ENT Inspection, Pharynx Normal, TMs Normal Neck: Full Range of Motion, Non-Tender, Normal, Normal Inspection Respiratory: Chest Non-Tender, Lungs Clear, No Accessory Muscle Use, No Respiratory Distress, Normal Breath Sounds Cardiovascular: No Edema, No JVD, No Murmur, No Gallop, Normal Peripheral Pulses, Regular Rate/Rhythm Breast Exam: Deferred Gastrointestinal: No Organomegaly, Non Tender, No Pulsatile Mass, Normal Bowel Sounds, Soft Genitalia: Deferred Pelvic: Deferred Rectal: Deferred Extremities: No calf tenderness, Normal capillary refill, Normal inspection, Normal range of motion, Non-tender, No pedal edema Musculoskeletal : Apperance: Normal Neurologic: Alert, aircraft dispatcher II-XII nml as Tested, No Motor Deficits, Normal Affect, Normal Mood, No Sensory Deficits Cerebellar Function: Normal Reflexes: Normal Skin: Dry, Normal Color, Warm Lymphatic: No Adenopathy Was a procedure done? Was a procedure done?: No Differential Dx Considerations may include: PICC line removal X-Ray, Labs, Meds, VS Vital Signs Date Time Temp Pulse Resp B/P (MAP) Pulse Ox O2 Delivery O2 Flow Rate FiO2 08/07/24 08:48 97.5 65 17 108/53 (71) 96 97.5 Time of 1ST Reevaluation: 09:27 Reevaluation 1ST: Unchanged Patient Education/Counseling: Diagnosis, Treatment, Prognosis Family Education/Counseling: No Family Present Departure 1 Departure Time of Disposition: 09:25 (Patient presented for PICC line removal. Emergency nurse removed the PICC line.) Impression: Primary Impression: PIC line (peripherally inserted central catheter) removal Disposition: 01 HOME / SELF CARE / HOMELESS Condition: Stable Additional Instructions: Your PICC line was removed today. It is important to follow up with the regular doctors. Discharged With: Self Critical Care Note Critical Care Time?: No Stability Stability form required: No I personally scribed for CAR LING MD ([email or web address]) on 08/07/24 at 09:05. Electronically submitted by Garima Dubose ([email or web address]). CAR LING MD Aug 07, 2024 09:05
[2024-08-07] MEDS: LIDOCAINE 2%HCL (LOCAL ANESTH.) INJ 10ml MDV ONE (10:51)
--- NOTE | 2024-08-07 11:28 | DVH ---
XY Removal of central venous cath, 08/07/2024 HISTORY: Catheter removal PROCEDURE: An informed consent was obtained. The patient was placed inclined on a gurney. The skin ar ound the catheter was prepped with chlorhexidine which was allowed to dry and draped in the usual vanessa rile fashion. Time out was performed. The skin and the catheter tract were infiltrated with 1% Lidoca ine with epinephrine. The catheter tract was blunt dissected with a Paris clamp and the tunneled cath eter was removed. Hemostasis of the venotomy site was obtained with manual pressure. The skin opening was dressed with a sterile bandage. No immediate complication was noted. IMPRESSION: Successful removal of right internal jugularvein tunneled catheter.
== END 2024-08-07 11:34 | disposition home or self-care (01) ==
LOC: ER 08:37
DX: Z45.2 Encounter for adjustment and management of vascular access device (principal); I10 Essential (primary) hypertension; E11.9 Type 2 diabetes mellitus without complications; E78.5 Hyperlipidemia, unspecified; Z79.82 Long term (current) use of aspirin; Z79.84 Long term (current) use of oral hypoglycemic drugs; Z79.899 Other long term (current) drug therapy
CPT/HCPCS: 99281; J2003